=== PATIENT | female | born 1970 | race Caucasian/White ===

== ENCOUNTER 2017-10-24 17:13 | Inpatient (IN) | payer OTHER ==
--- NOTE | 2017-10-24 18:38 | C.PDOC ---
History Of Present Illness 47 yo female with history of hypertension, diabetes, presents to ED with complaints of 1 week of left sided chest pain, axillary pain, and left shoulder pain. Patient states the pain is intermittent and when present, lasts for an hour and occurs once per day. She reports noticing the symptoms particularluy when she is upset. She also reports associated left arm tingling and nausea. She also has SOB upon exertion (unrelated to current presentation). Patient denies any fever, chills, vomiting, visual changes or weakness. She reports she had similar symptoms 1 month ago and was seen by Dr. Jason and had an EKG done which was normal. Of note, patient reports a vague history of a clot in her left arm after her oopherectomy and hysterectomy, requiring her to be on Warfarin for 1 year; denies any recent use of Warfarin. Patient states she took Aspirin 325mg PO intermittently for her symptoms with minimal relief. She has no other medical complaints. Time Seen by Provider: 10/24/17 17:49 Chief Complaint (Nursing): Chest Pain History Per: Patient History/Exam Limitations: no limitations Onset/Duration Of Symptoms: Days, Intermittent Episodes Current Symptoms Are (Timing): Still Present Severity: Mild Additional History Per: Patient Past Medical History Reviewed: Historical Data, Nursing Documentation, Vital Signs Vital Signs: Last Vital Signs Temp 98.5 F 10/24/17 17:26 Pulse 80 10/24/17 17:26 Resp 18 10/24/17 17:26 BP 149/85 10/24/17 17:26 Pulse Ox 99 10/24/17 18:43 - Medical History PMH: Deep Vein Thrombosis, HTN Surgical History: No Surg Hx Family History: States: Stroke, CAD, Diabetes, Hypertension, Other Other Family History: breast cancer, AFib - Social History Hx Tobacco Use: No Hx Alcohol Use: No Hx Substance Use: No - Immunization History Hx Tetanus Toxoid Vaccination: No Hx Influenza Vaccination: No Hx Pneumococcal Vaccination: No Review Of Systems Constitutional: Negative for: Fever, Chills Cardiovascular: Positive for: Chest Pain. Negative for: Palpitations Respiratory: Negative for: Cough, Shortness of Breath Gastrointestinal: Negative for: Abdominal Pain Musculoskeletal: Positive for: Back Pain (left upper back), Other (left axilliary pain) Neurological: Positive for: Other (tingling left arm). Negative for: Weakness, Numbness Physical Exam - Physical Exam Appears: Well, Non-toxic, No Acute Distress Skin: Normal Color, Warm, Dry, Rash (eczema like rash noted to ventral aspect of right forearm) Head: Normacephalic Eye(s): bilateral: Normal Inspection Oral Mucosa: Moist Neck: Supple Chest: Symmetrical, Tenderness (tenderness to palpation of left chest wall) Cardiovascular: Rhythm Regular Respiratory: Normal Breath Sounds, No Rales, No Rhonchi, No Wheezing Gastrointestinal/Abdominal: Normal Exam, Bowel Sounds, Soft, No Tenderness Back: No Vertebral Tenderness, Muscle Spasm (left upper back tenderness) Extremity: Normal ROM, Tenderness (tenderness to left axilla, worse with ROM left arm), No Pedal Edema, No Calf Tenderness Neurological/Psych: Oriented x3 ED Course And Treatment ECG: Interpreted By Me, Viewed By Me ECG Interpretation: Abnormal Interpretation Of ECG: Normal sinus rhythm. Normal axis. Flattened T-waves in I, V6. T-wave inversion in AVL and V5. No ST/T wave changes O2 Sat by Pulse Oximetry: 99 (RA) Pulse Ox Interpretation: Normal Progress Note: Blood work, CXR, EKG ordered and reviewed. Disposition - Disposition Disposition Time: 19:00 Condition: STABLE Forms: [facility] (Cameroonian) - Clinical Impression Clinical Impression: Chest pain - Scribe Statement The provider has reviewed the documentation as recorded by the Scribe (Eliane Inman) Provider Attestation: All medical record entries made by the Scribe were at my direction and personally dictated by me. I have reviewed the chart and agree that the record accurately reflects my personal performance of the history, physical exam, medical decision making, and the department course for this patient. I have also personally directed, reviewed, and agree with the discharge instructions and disposition. Physician Patient Turnover Patient Signed Over To: Andre Wheeler Handoff Comments: pending labs, reassessment
[2017-10-24 19:06] LABS: HCG,QUALITATIVE URINE NEGATIVE (NEGATIVE)
[2017-10-24 19:08] LABS: BASO # 0.1 K/uL (0.0-0.2); BASO % 0.9 % (0.0-2.0); EOS # 0.3 K/uL (0.0-0.7); EOS % 2.4 % (0.0-4.0); HEMOGLOBIN 14.7 g/dL (11.0-16.0); LYMPH # 3.2 K/uL (1.0-4.3); LYMPH % 24.6 % (20.0-40.0); MEAN CELL VOLUME 87.4 fL (81.0-99.0); MEAN CORPUSCULAR HEMOGLOBIN 30.6 pg (27.0-31.0); MEAN PLATELET VOLUME 10.7 fL (7.2-11.7); MONO % 7.6 % (0.0-10.0); NEUT # 8.5 K/uL (1.8-7.0); NEUT % 64.5 % (50.0-75.0); NRBC % 0.1 % (0.0-2.0); RBC 4.8 Mil/uL (3.80-5.20); RED CELL DISTRIBUTION WIDTH 12.8 % (11.5-14.5); WHITE BLOOD COUNT 13.2 K/uL (4.8-10.8)
[2017-10-24 19:11] LABS: SQUAMOUS EPITHIAL 1 /hpf (0-5); URINE BACTERIA OCC (<OCC); URINE BILIRUBIN NEGATIVE (NEGATIVE); URINE BLOOD NEGATIVE (NEGATIVE); URINE CLARITY Clear (Clear); URINE COLOR Yellow (YELLOW); URINE GLUCOSE (UA) 3+ mg/dL (Normal); URINE LEUKOCYTE ESTERASE NEG Leu/uL (Negative); URINE PROTEIN NEGATIVE (NEGATIVE); URINE UROBILINOGEN NORMAL mg/dL (0.2-1.0)
[2017-10-24 19:35] LABS: INR 1.1; PROTHROMBIN TIME 12.2 SECONDS (9.7-12.2)
[2017-10-24 19:42] LABS: CALCIUM 9.6 mg/dl (8.6-10.4); GFR AFRICAN-AMERICAN > 60; GFR NON-AFRICAN AMERICAN > 60
[2017-10-24 19:44] LABS: ALBUMIN 3.8 g/dL (3.5-5.0); ALT/SGPT < 6 U/L (9-52); AST/SGOT 34 U/L (14-36); BLOOD UREA NITROGEN 17 mg/dL (7-17)
[2017-10-24] MEDS ORDERED: Iohexol 300 100 ML IJ ONE (20:25)
--- NOTE | 2017-10-24 21:47 | CT ---
EXAM: CT Angiography Chest With Intravenous Contrast CLINICAL HISTORY: 47 years old, female; Pain; Chest pain; Left-sided chest pain; Additional info: Chest pain/ elevated d-dimer TECHNIQUE: Axial computed tomographic angiography images of the chest with intravenous contrast using pulmonary embolism protocol. All CT scans at this facility use one or more dose reduction techniques, viz.: automated exposure control; ma/kV adjustment per patient size (including targeted exams where dose is matched to indication; i.e. head); or iterative reconstruction technique. MIP reconstructed images were created and reviewed. Coronal and sagittal reformatted images were created and reviewed. CONTRAST: 100 mL of visipaque 320 administered intravenously. COMPARISON: No relevant prior studies available. FINDINGS: Pulmonary arteries: No pulmonary embolism. Aorta: No aneurysm. No dissection. Lungs: Minimal atelectasis/scarring. No consolidation. Pleural space: No significant effusion. No pneumothorax. Heart: No cardiomegaly. No significant pericardial effusion. Bones/joints: No acute fracture. Soft tissues: 1.4 x 2.6 x 1.8 cm soft tissue lesion within left breast. Lymph nodes: No pathologically enlarged lymph nodes. IMPRESSION: 1. No CT evidence of pulmonary embolism. 2. Left breast lesion. Correlation with mammography is recommended. 3. Incidental/non-acute findings are described above.
--- NOTE | 2017-10-24 22:51 | CP.PCM.HP ---
Addendum entered and electronically signed by Hazel Omalley DO 10/25/17 03:20: HTN losartan 100 mg POQD HCTZ 12.5 mg POQD Original Note: <Hazel Omalley - Last Filed: 10/25/17 03:14> History of Present Illness - History of Present Illness History of Present Illness: CC: chest pain and left arm pain x 1 month HPI: Patient states she started to have chest pain for one month. Patient states she has numbness of tips of her fingers of left hand and pain along her left arm. Patient denies anything making it better or worse. She said she tried taking aspirin for the pain but it does not go away immediately. Pain lasts for 1 hour and does not go away. Patient had EKG done when the symptoms started at her PMD's office, but nothing came back positive. Patient has not seen a cyanide case hardener outpatient for a workup. Patient was diagnosed with depression 1 month ago due to depression screening at the Doctor's office and was given escitalopram which patient states she uses intermittently. Patient denies suicidal ideation, plans to harm self or others. Patient states she just feels overwhelmed, and feels a lot of pressure on herself to stay strong. Patient states she is worried that medications can cause side effects like the blood clot she got in her arm on a previous admission to [facility] for menorrhagia leading to hysterectomy about four years ago. Patient states she was found to have a blood clot of her left upper extremity and had to be readmitted for treatment. Patient says currently she feels like she has a knot in her left armpit and is worried because her sisters on mother's side had from breast cancer and she had a biopsy with mesh placement on left breast (which may explain CT chest finding of left breast lesion) PMH: DM, HTN, hx of dvt of left upper extremity (4 years ago), miscarriage, menorrhagia s/p hysterectomy Surgical history: hysterectomy family history: son has down syndrome, relatives have had "hole in the heart", parents have heart disease Medications: HCTZLosartan, escitalopram (intermittently), metformin (patient does not take due to diarrhea and abdominal pain) PMD Dr. Meng Present on Admission - Present on Admission Any Indicators Present on Admission: No History of DVT/PE: No History of Uncontrolled Diabetes: No Urinary Catheter: No Decubitus Ulcer Present: No Past Patient History - Past Medical History & Family History Past Medical History?: Yes - Past Social History Smoking Status: Never Smoked - CARDIAC Hx Hypertension: Yes - MUSCULOSKELETAL/RHEUMATOLOGICAL Hx Falls: No - GASTROINTESTINAL Hx Gastrointestinal Disorders: Yes Hx Nausea: Yes - PSYCHIATRIC Hx Substance Use: No - SURGICAL HISTORY Hx Surgeries: Yes Hx Section: Yes Hx Hysterectomy: Yes (2012) Other/Comment: fibroid surgery 02/2012, ANKLE SX, D&C - ANESTHESIA Hx Anesthesia: Yes Hx Anesthesia Reactions: No Hx Malignant Hyperthermia: No Meds Allergies/Adverse Reactions: Allergies Allergy/AdvReac Type Severity Reaction Status Date / Time No Known Allergies Allergy Verified 10/24/17 17:30 Physical Exam - Constitutional Appears: Non-toxic, No Acute Distress - Head Exam Head Exam: NORMAL INSPECTION, NORMOCEPHALIC - Eye Exam Eye Exam: EOMI, Normal appearance - ENT Exam ENT Exam: Mucous Membranes Moist, Normal Exam - Neck Exam Neck exam: Positive for: Full Rom, Normal Inspection. Negative for: Thyromegaly - Respiratory Exam Respiratory Exam: Clear to Auscultation Bilateral, NORMAL BREATHING PATTERN. absent: Accessory Muscle Use - Cardiovascular Exam Cardiovascular Exam: REGULAR RHYTHM, +S1, +S2 - GI/Abdominal Exam GI & Abdominal Exam: Normal Bowel Sounds, Soft. absent: Rebound, Rigid - Neurological Exam Neurological exam: Alert, CN II-XII Intact - Psychiatric Exam Psychiatric exam: Depressed, Flat Affect, Normal Mood Results - Vital Signs Recent Vital Signs: Last Vital Signs Temp 98.5 F 10/24/17 17:26 Pulse 75 10/24/17 20:24 Resp 18 10/24/17 20:24 BP 155/86 H 10/24/17 20:24 Pulse Ox 100 10/24/17 22:11 - Labs Result Diagrams: 10/24/17 18:56 10/24/17 19:18 Labs: Laboratory Results - last 24 hr 10/24/17 10/24/17 10/24/17 18:56 18:56 19:18 WBC 13.2 H RBC 4.80 Hgb 14.7 Hct 41.9 MCV 87.4 D MCH 30.6 MCHC 35.0 RDW 12.8 Plt Count 272 MPV 10.7 Neut % (Auto) 64.5 Lymph % (Auto) 24.6 [place] % (Auto) 7.6 Eos % (Auto) 2.4 Baso % (Auto) 0.9 Neut # (Auto) 8.5 H Lymph # (Auto) 3.2 [place] # (Auto) 1.0 H Eos # (Auto) 0.3 Baso # (Auto) 0.1 PT 12.2 INR 1.1 APTT 28 D-Dimer, Quantitative 356 H Sodium Potassium Chloride Carbon Dioxide Anion Gap BUN Creatinine Est GFR ( Amer) Est GFR (Non-Af Amer) Random Glucose Calcium Total Bilirubin AST ALT Alkaline Phosphatase Total Creatine Kinase Troponin I Total Protein Albumin Globulin Albumin/Globulin Ratio Urine Color Yellow Urine Clarity Clear Urine pH 5.0 Ur Specific [place] 1.031 H Urine Protein Negative Urine Glucose (UA) 3+ H Urine Ketones Negative Urine Blood Negative Urine Nitrate Negative Urine Bilirubin Negative Urine Urobilinogen Normal Ur Leukocyte Esterase Neg Urine WBC (Auto) 1 Urine RBC (Auto) 3 Ur Squamous Epith Cells 1 Urine Bacteria Occ H Urine HCG, Qual Negative 10/24/17 19:18 WBC RBC Hgb Hct MCV MCH MCHC RDW Plt Count MPV Neut % (Auto) Lymph % (Auto) [place] % (Auto) Eos % (Auto) Baso % (Auto) Neut # (Auto) Lymph # (Auto) [place] # (Auto) Eos # (Auto) Baso # (Auto) PT INR APTT D-Dimer, Quantitative Sodium 137 Potassium 4.7 Chloride 101 Carbon Dioxide 27 Anion Gap 14 BUN 17 Creatinine 0.6 L Est GFR ( Amer) > 60 Est GFR (Non-Af Amer) > 60 Random Glucose 266 H Calcium 9.6 Total Bilirubin 0.4 AST 34 ALT < 6 L D Alkaline Phosphatase 87 Total Creatine Kinase 35 Troponin I < 0.0120 Total Protein 7.7 Albumin 3.8 Globulin 3.9 Albumin/Globulin Ratio 1.0 Urine Color Urine Clarity Urine pH Ur Specific [place] Urine Protein Urine Glucose (UA) Urine Ketones Urine Blood Urine Nitrate Urine Bilirubin Urine Urobilinogen Ur Leukocyte Esterase Urine WBC (Auto) Urine RBC (Auto) Ur Squamous Epith Cells Urine Bacteria Urine HCG, Qual Assessment & Plan - Assessment and Plan (Free Text) Assessment: ACS r/o f/u ROMIs ROMIs negative x 1 ddimer elevated CTA negative for PE, incidental left breast lesion noted Patient states she had biopsy in the past for it. f/u blood culture f/u tsh, t4 Cardiology consult: Dr. Macias DM hypoglycemic protocol f/u A1c insulin sc ACHS accucheck achs Depression monitor Prophylaxis SCD Heparin 5000 sc q8h Pepcid [address] Meng discussed with Dr. Britany Omalley DO PGY1 - Date & Time Date: 10/24/17 Time: 22:51 <Yves Garg - Last Filed: 10/25/17 06:34> Results - Vital Signs Recent Vital Signs: Last Vital Signs Temp 98.4 F 10/25/17 02:54 Pulse 72 10/25/17 04:00 Resp 18 10/25/17 02:54 BP 136/80 10/25/17 02:54 Pulse Ox 96 10/25/17 02:54 - Labs Result Diagrams: 10/24/17 18:56 10/24/17 19:18 Labs: Laboratory Results - last 24 hr 10/24/17 10/24/17 10/24/17 18:56 18:56 19:18 WBC 13.2 H RBC 4.80 Hgb 14.7 Hct 41.9 MCV 87.4 D MCH 30.6 MCHC 35.0 RDW 12.8 Plt Count 272 MPV 10.7 Neut % (Auto) 64.5 Lymph % (Auto) 24.6 [place] % (Auto) 7.6 Eos % (Auto) 2.4 Baso % (Auto) 0.9 Neut # (Auto) 8.5 H Lymph # (Auto) 3.2 [place] # (Auto) 1.0 H Eos # (Auto) 0.3 Baso # (Auto) 0.1 PT 12.2 INR 1.1 APTT 28 D-Dimer, Quantitative 356 H Sodium Potassium Chloride Carbon Dioxide Anion Gap BUN Creatinine Est GFR ( Amer) Est GFR (Non-Af Amer) Random Glucose Calcium Total Bilirubin AST ALT Alkaline Phosphatase Total Creatine Kinase CK-MB (Mass) Troponin I Total Protein Albumin Globulin Albumin/Globulin Ratio Urine Color Yellow Urine Clarity Clear Urine pH 5.0 Ur Specific [place] 1.031 H Urine Protein Negative Urine Glucose (UA) 3+ H Urine Ketones Negative Urine Blood Negative Urine Nitrate Negative Urine Bilirubin Negative Urine Urobilinogen Normal Ur Leukocyte Esterase Neg Urine WBC (Auto) 1 Urine RBC (Auto) 3 Ur Squamous Epith Cells 1 Urine Bacteria Occ H Urine HCG, Qual Negative 10/24/17 10/25/17 19:18 01:01 WBC RBC Hgb Hct MCV MCH MCHC RDW Plt Count MPV Neut % (Auto) Lymph % (Auto) [place] % (Auto) Eos % (Auto) Baso % (Auto) Neut # (Auto) Lymph # (Auto) [place] # (Auto) Eos # (Auto) Baso # (Auto) PT INR APTT D-Dimer, Quantitative Sodium 137 Potassium 4.7 Chloride 101 Carbon Dioxide 27 Anion Gap 14 BUN 17 Creatinine 0.6 L Est GFR ( Amer) > 60 Est GFR (Non-Af Amer) > 60 Random Glucose 266 H Calcium 9.6 Total Bilirubin 0.4 AST 34 ALT < 6 L D Alkaline Phosphatase 87 Total Creatine Kinase 35 < 20 L CK-MB (Mass) < 0.22 Troponin I < 0.0120 < 0.0120 Total Protein 7.7 Albumin 3.8 Globulin 3.9 Albumin/Globulin Ratio 1.0 Urine Color Urine Clarity Urine pH Ur Specific [place] Urine Protein Urine Glucose (UA) Urine Ketones Urine Blood Urine Nitrate Urine Bilirubin Urine Urobilinogen Ur Leukocyte Esterase Urine WBC (Auto) Urine RBC (Auto) Ur Squamous Epith Cells Urine Bacteria Urine HCG, Qual Assessment & Plan - Date & Time Date: 10/25/17 (I have seen and examined the patient. I agree with the findings and plan of care as documented by Dr. Omalley. Patient with chest pain. History of hypertension and diabetes. ROMIx3 with EKG. Aspirin and Statin. Consult to Cardio. Continue home meds. Accuchecks and NISS. Monitor for acute changes.) Time: 06:33 Attending/Attestation - Attestation I have personally seen and examined this patient.: Yes I have fully participated in the care of the patient.: Yes I have reviewed all pertinent clinical information: Yes
[2017-10-24] MEDS ORDERED: Dextrose 50% SYRINGE Inj (50 ml) IVP PRN (23:14)
[2017-10-24] MEDS ORDERED: Glucagon Recombinant 1 mg Inj IM PRN (23:14)
[2017-10-25 02:14] LABS: CK-MB < 0.22 ng/mL (0.0-3.38)
[2017-10-25 07:25] LABS: BASO # 0.1 K/uL (0.0-0.2); BASO % 0.8 % (0.0-2.0); EOS # 0.4 K/uL (0.0-0.7); EOS % 3.6 % (0.0-4.0); HEMOGLOBIN 12.9 g/dL (11.0-16.0); LYMPH # 3.6 K/uL (1.0-4.3); LYMPH % 33.8 % (20.0-40.0); MEAN CELL VOLUME 87.7 fL (81.0-99.0); MEAN CORPUSCULAR HEMOGLOBIN 30.7 pg (27.0-31.0); MEAN PLATELET VOLUME 10.6 fL (7.2-11.7); NEUT # 5.6 K/uL (1.8-7.0); NEUT % 52.8 % (50.0-75.0); RBC 4.19 Mil/uL (3.80-5.20); RED CELL DISTRIBUTION WIDTH 12.9 % (11.5-14.5); WHITE BLOOD COUNT 10.6 K/uL (4.8-10.8)
[2017-10-25] MEDS ORDERED: (Novolin R) Insulin Human Regular 100 units/ml vial SC SCH ×2 (07:30→09:54)
[2017-10-25 07:40] LABS: ALBUMIN 3.4 g/dL (3.5-5.0); ALT/SGPT 7 U/L (9-52); AST/SGOT 18 U/L (14-36); BLOOD UREA NITROGEN 21 mg/dL (7-17); CALCIUM 9.2 mg/dl (8.6-10.4); GFR AFRICAN-AMERICAN > 60; GFR NON-AFRICAN AMERICAN > 60; HDL CHOLESTEROL 31 mg/dL (30-70)
[2017-10-25 07:49] LABS: LDL CHOLESTEROL 142 mg/dL (0-129)
--- NOTE | 2017-10-25 08:26 | RAD ---
Chest x-ray single frontal view History: Chest pain. Comparison: None available. Findings: No focal infiltrate or effusion. Heart size within normal limits. Small nodular density at the left lung base likely represents confluence of shadows with ribs and vessels. Impression: No focal infiltrate or effusion.
[2017-10-25 10:30] LABS: CK-MB < 0.22 ng/mL (0.0-3.38)
--- NOTE | 2017-10-25 11:22 | CP.PCM.PN ---
<Memo Reynoso - Last Filed: 10/25/17 11:19> Subjective - Date & Time of Evaluation Date of Evaluation: 10/25/17 Time of Evaluation: 11:19 - Subjective Subjective: Patient seen and examined at bedside. No chest pain or SOB today. Complains of pain in the feet overnight. Not new. She attributes this to her DM. States has not had mammogram in 6 years, states she has been to busy. Has tried to control her DM with diet but is open to option of taking insulin as sugar is uncontrolled. Objective - Vital Signs/Intake and Output Vital Signs (last 24 hours): Temp Pulse Resp BP Pulse Ox 97.8 F 71 18 163/100 H 98 10/25/17 07:30 10/25/17 07:30 10/25/17 07:30 10/25/17 07:30 10/25/17 07:30 - Medications Medications: Current Medications Aspirin (Aspirin Chewable) 81 mg PO DAILY [facility] Hydrochlorothiazide (Microzide) 12.5 mg PO DAILY [facility] Last Admin: 10/25/17 09:55 Dose: 12.5 mg Insulin Human Regular (Novolin R) 0 unit SC ACHS [facility] PRN Reason: Protocol Losartan Potassium (Cozaar) 100 mg PO DAILY [facility] Last Admin: 10/25/17 09:55 Dose: 100 mg - Labs Labs: 10/25/17 07:16 10/25/17 07:16 PT 12.2 SECONDS (9.7-12.2) 10/24/17 19:18 INR 1.1 10/24/17 19:18 APTT 28 SECONDS (21-34) 10/24/17 19:18 - Constitutional Appears: Well - Head Exam Head Exam: ATRAUMATIC, NORMAL INSPECTION, NORMOCEPHALIC - Eye Exam Eye Exam: EOMI, Normal appearance, PERRL Pupil Exam: NORMAL ACCOMODATION, PERRL - ENT Exam ENT Exam: Mucous Membranes Moist, Normal Exam - Neck Exam Neck Exam: Full ROM, Normal Inspection. absent: Lymphadenopathy - Respiratory Exam Respiratory Exam: Clear to Ausculation Bilateral, NORMAL BREATHING PATTERN - Cardiovascular Exam Cardiovascular Exam: REGULAR RHYTHM, +S1, +S2. absent: Murmur Additional comments: breast exam no masses. No skin changes. Previous surgical clip able to be palpated on LUQ - GI/Abdominal Exam GI & Abdominal Exam: Soft, Normal Bowel Sounds. absent: Tenderness - Extremities Exam Extremities Exam: Full ROM, Normal Capillary Refill, Normal Inspection. absent : Joint Swelling, Pedal Edema - Back Exam Back Exam: NORMAL INSPECTION - Neurological Exam Neurological Exam: Alert, Awake, CN II-XII Intact, Normal Gait, Oriented x3 - Psychiatric Exam Psychiatric exam: Normal Affect, Normal Mood - Skin Skin Exam: Dry, Intact, Normal Color, Warm Assessment and Plan (1) Chest pain Assessment & Plan: patient has DM and atypical chest pain with YOEL of 3. Will need echo and stress test tomorrow. Cream Separator Operator is Dr. Macias Start ASA and Statin, patient is already on ARB LDL is 142 7.4% 10 year risk of Cardiovascular event. 1 ekg did show T wave inversions in anterior leads but this was transient. All trops are negative x3 Status: Acute (2) Diabetes mellitus Assessment & Plan: A1C 11.1 despite lifestyle modifications Will start patient on ISS. Will need to be on insulin regimen as outpatient. Will consult Endo Dr. Reyna for her opinion and follow up. Patient is complaining of bilateral tingling in the feet so will start gabapentin 300 BID. Will have actuarial consultant talk to the patient. Has previously had trial of metformin but has diarrhea and was unable to tolerate. Status: Acute (3) History of abnormal mammogram Assessment & Plan: breast exam was unremarkable. Given patients history will need outpatient mammogram. Status: Acute (4) HTN (hypertension) Assessment & Plan: continue losartan and HCTZ Status: Acute (5) Prophylactic measure Assessment & Plan: heparin SC q8 No GI ppx indicated at this time. scd Status: Acute <Arcelia Moctezuma V - Last Filed: 10/25/17 19:27> Objective - Vital Signs/Intake and Output Vital Signs (last 24 hours): Temp Pulse Resp BP Pulse Ox 98.2 F 66 20 130/84 98 10/25/17 15:00 10/25/17 16:13 10/25/17 15:00 10/25/17 15:00 10/25/17 16:00 - Medications Medications: Current Medications Aspirin (Aspirin Chewable) 81 mg PO DAILY [facility] Last Admin: 10/25/17 12:40 Dose: 81 mg Gabapentin (Neurontin) 300 mg PO BID [facility] Last Admin: 10/25/17 17:48 Dose: 300 mg Hydrochlorothiazide (Microzide) 12.5 mg PO DAILY [facility] Last Admin: 10/25/17 09:55 Dose: 12.5 mg Insulin Aspart (Novolog) 10 unit SC AC [facility] Last Admin: 10/25/17 17:48 Dose: 10 units Insulin Aspart (Novolog) 0 unit SC ACHS [facility] Last Admin: 10/25/17 17:10 Dose: Not Given Insulin Glargine (Lantus) 24 unit SC HS [facility] Losartan Potassium (Cozaar) 100 mg PO DAILY [facility] Last Admin: 10/25/17 09:55 Dose: 100 mg Rosuvastatin Calcium (Crestor) 10 mg PO HS [facility] - Labs Labs: 10/25/17 07:16 10/25/17 07:16 PT 12.2 SECONDS (9.7-12.2) 10/24/17 19:18 INR 1.1 10/24/17 19:18 APTT 28 SECONDS (21-34) 10/24/17 19:18 Attending/Attestation - Attestation I have personally seen and examined this patient.: Yes I have fully participated in the care of the patient.: Yes I have reviewed all pertinent clinical information, including history, physical exam and plan: Yes Notes (Text): Patient seen, examined and case discussed with day-time resident. Patient reports she was diagnosed in the office of Dr. Jason for diabetes couple of months ago. She did not want to start medications; planned to dietary and lifestyle modifications. I have explained to her that her a1c: 11 and will likely need insulin. I have also explained to her given her cardiac risk factors of diabetes, hypertension, family hx of stroke we carry a high suspicion for heart disease given her complaints of chest pain. Patient's 1st EKG is abnormal. Cardiology recommending for echocardiogram and stress test. Patient also reports there is significant family hx for breast cancer, her maternal aunts two have breast cancer. She reports she had a mammography completed 5 years ago but has not had her yearly mammogram because of life stressors including the care of her 26 year old son who has Down syndrome. Patient reports she had mammogram about 5 years and had left marker from breast. Assessment/Plan (1) Chest pain Assessment & Plan: * Cream Separator Operator is Dr. Macias on board-->help appreciated * patient has DM and atypical chest pain with YOEL of 3. * Will need echo and stress test tomorrow * Aspirin 81mg PO daily * LDL: 142, HDL 31, Cholestrol: 177, T * BINTA X3: negative * Hgba1c:11.1 * Chest xray (10/24/17): no infiltrate or effusion * CT Chest (10/24/17): No CT evidence of pulmonary embolism, left breast lesion. Status: Acute (2) Diabetes mellitus Assessment & Plan: * Endocrinology (Dr. Reyna) on board-->help appreciated * A1C 11.1 despite lifestyle modifications * regular insulin slide subq * Start gabapentin 300 BID * Lantus 24units subHS * Novolog 10 subq AC * Cozaar 100mg POdaily * Crestor 10mg PO qHS Status: Acute (3) History of abnormal mammogram Assessment & Plan: * breast exam was unremarkable. Given patients history will need outpatient mammogram. Status: Acute (4) HTN (hypertension) Assessment & Plan: * HCTZ 12.5mg PO daily * Cozaar 100mg PO daily Status: Acute (5) Prophylactic measure Assessment & Plan: * heparin SC q8 * No GI ppx indicated at this time. * scd Status: Acute
[2017-10-25] MEDS ORDERED: (Novolog) Insulin Aspart, Recombinant 100 u/ml 10 ml vial SC SCH (16:30)
[2017-10-25] MEDS: (Novolog) Insulin Aspart, Recombinant 100 u/ml 10 ml vial SC SCH ×2 (17:10→21:54)
[2017-10-25] MEDS ORDERED: (Lantus) Insulin Glargine, Recombinant SC SCH (22:00)
--- NOTE | 2017-10-26 02:57 | CON ---
DATE: 10/25/2017 ENDOCRINOLOGY CONSULT LOCATION: Room 650, 6th tower. HISTORY OF PRESENT ILLNESS: This is a 47-year-old female with known history of type 2 diabetes and hypertension, presenting here with sudden onset of precordial chest pain and supervening left arm painful paresthesias and is now being referred for diabetic evaluation because of persistent hyperglycemic accelerations as noted there. PAST MEDICAL HISTORY: As mentioned above, history of type 2 diabetes, previously on metformin therapy as noted, history of hypertension and dyslipidemia, history of generalized anxiety and depression, currently taking psychotropic medications, history of fibroid tumors and menorrhagia, and underwent subsequent hysterectomy some years ago as noted. She also had significant history of deep vein thrombosis in the left upper extremity. FAMILY HISTORY: Positive for hypertension and diabetes. SOCIAL HISTORY: The patient has supportive family. No known substance use. REVIEW OF SYSTEMS: As mentioned above. Admits to generalized body weakness with easy fatigability and tiredness and suboptimal energy level, also had mixed episodic bouts of dizziness and lightheadedness, worse on the day of admission. No chest pains or palpitations or PNDs. Her oral intake, however, has been variable with nausea and dyspepsia and vague upper abdominal pain. PHYSICAL EXAMINATION: GENERAL: Overweight female, in no apparent distress. VITAL SIGNS: Blood pressure 144/80, pulse of 70 beats per minute and regular, temperature 98, respirations 20, height is 5 feet 1 inches, weight is 185 pounds. HEENT: Head is normocephalic. Eyes anicteric with pink conjunctivae. Funduscopy not possible at this time. Ears, nose, and throat, otherwise, normal. NECK: Supple. Thyroid gland is normal size. No carotid bruits or cervical adenopathy. CARDIOPULMONARY: Some adynamic precordium. S1, S2, rapid and regular. LUNGS: Clear to auscultation. ABDOMEN: Flat and soft with positive bowel sounds. EXTREMITIES: No peripheral edema. Pulses are +2 bilaterally. LABORATORY DATA: Her chemistry showed a hemoglobin A1c of 11.1%, which is quite elevated and indicative of suboptimal metabolic control of her diabetic condition even prior to this admission. Her latest chemistry showed a BUN of 21, sodium 140, potassium 3.9, chloride 102, CO2 of 27, glucose 246 with creatinine of 0.7. Her glucose values have ranged from 247 to 311 mg/dL. ASSESSMENT: This is a 47-year-old female with uncontrolled and decompensated type 2 insulin requiring diabetes presenting here with marked hyperglycemic accelerations and hyperosmolar hyperglycemic state as noted. She also has microvascular complications of retinopathy and polyneuropathy with diabetic macrovascular complications with coronary artery disease and peripheral arterial disease and vasculopathies. PLAN OF MANAGEMENT: I have discussed with the patient and the staff. We will switch the patient over to a more physiologic basal and bolus insulin drug combination as noted. We will start her with NovoLog given as 10 units subcu t.i.d. before meals to start today. We will also add basal insulin with Lantus to be given as 24 units subcu at bedtime daily to start tonight. We will modify the coverage scale to await hypoglycemia with NovoLog coverage as given and detailed orders have been given in the computer. We will obtain serial chemistries and supplement accordingly as needed. We will follow and advise accordingly. Any Reyna MD
[2017-10-26] MEDS: (Novolog) Insulin Aspart, Recombinant 100 u/ml 10 ml vial SC SCH ×7 (07:52→21:15)
[2017-10-26 08:05] LABS: BASO # 0.1 K/uL (0.0-0.2); BASO % 0.9 % (0.0-2.0); EOS # 0.4 K/uL (0.0-0.7); HEMOGLOBIN 13.6 g/dL (11.0-16.0); LYMPH # 3.3 K/uL (1.0-4.3); LYMPH % 30.9 % (20.0-40.0); MEAN CORPUSCULAR HEMOGLOBIN 30.3 pg (27.0-31.0); MEAN CORPUSCULAR HGB CONC 34.5 g/dL (33.0-37.0); MEAN PLATELET VOLUME 10.5 fL (7.2-11.7); MONO # 0.8 K/uL (0.0-0.8); MONO % 7.8 % (0.0-10.0); NEUT # 6.1 K/uL (1.8-7.0); NEUT % 56.4 % (50.0-75.0); RBC 4.48 Mil/uL (3.80-5.20); RED CELL DISTRIBUTION WIDTH 12.9 % (11.5-14.5); WHITE BLOOD COUNT 10.7 K/uL (4.8-10.8)
[2017-10-26 08:11] LABS: ALBUMIN 3.6 g/dL (3.5-5.0); ALT/SGPT 9 U/L (9-52); AST/SGOT 18 U/L (14-36); BLOOD UREA NITROGEN 16 mg/dL (7-17); CALCIUM 9.3 mg/dl (8.6-10.4); GFR AFRICAN-AMERICAN > 60; GFR NON-AFRICAN AMERICAN > 60
--- NOTE | 2017-10-26 14:54 | CP.PCM.PN ---
Subjective - Date & Time of Evaluation Date of Evaluation: 10/26/17 Time of Evaluation: 14:20 - Subjective Subjective: Medical Attending Note: patient seen and examined. patient's and son present. Patient reports mild headache and reports she feels anxious awaiting results from echo and stress test completed this morning. Patient denies chest pain, denies cough, denies palpitations, denies abdominal pain, denies vomitting, denies nausea, reports having bowel movement. I had an extensive conversation regarding lifestyle and exercise modifications to controlling her diabetes and hypertension. Patient is aware she must and is commited to doing so. I have suggested her to use the [place] [employer] to for suggestive meal plans. Patient is aware she needs insulin to limit the effects of diabetes on the body. Objective - Vital Signs/Intake and Output Vital Signs (last 24 hours): Temp Pulse Resp BP Pulse Ox 97.9 F 84 20 140/85 98 10/26/17 07:00 10/26/17 11:44 10/26/17 07:00 10/26/17 07:00 10/26/17 07:00 - Medications Medications: Current Medications Aspirin (Aspirin Chewable) 81 mg PO DAILY [facility] Last Admin: 10/26/17 11:32 Dose: 81 mg Gabapentin (Neurontin) 300 mg PO BID [facility] Last Admin: 10/26/17 11:32 Dose: Not Given Heparin Sodium (Porcine) (Heparin) 5,000 units SC Q8 [facility] Last Admin: 10/26/17 14:01 Dose: Not Given Hydrochlorothiazide (Microzide) 12.5 mg PO DAILY [facility] Last Admin: 10/26/17 11:31 Dose: 12.5 mg Insulin Aspart (Novolog) 0 unit SC ACHS [facility] Last Admin: 10/26/17 12:00 Dose: Not Given Insulin Aspart (Novolog) 14 unit SC AC [facility] Insulin Glargine (Lantus) 28 unit SC HS [facility] Losartan Potassium (Cozaar) 100 mg PO DAILY [facility] Last Admin: 10/26/17 11:32 Dose: 100 mg Rosuvastatin Calcium (Crestor) 10 mg PO HS [facility] Last Admin: 10/25/17 21:54 Dose: 10 mg - Labs Labs: 10/26/17 07:47 10/26/17 07:47 PT 12.2 SECONDS (9.7-12.2) 10/24/17 19:18 INR 1.1 10/24/17 19:18 APTT 28 SECONDS (21-34) 10/24/17 19:18 - Constitutional Appears: Non-toxic, No Acute Distress - Head Exam Head Exam: NORMAL INSPECTION - Eye Exam Eye Exam: EOMI - ENT Exam ENT Exam: Mucous Membranes Moist - Respiratory Exam Respiratory Exam: Clear to Ausculation Bilateral, NORMAL BREATHING PATTERN. absent: Rales, Rhonchi, Wheezes - Cardiovascular Exam Cardiovascular Exam: RRR, +S1, +S2 - GI/Abdominal Exam GI & Abdominal Exam: Soft, Normal Bowel Sounds. absent: Distended, Firm, Guarding, Rigid, Tenderness, Rebound - Extremities Exam Extremities Exam: absent: Pedal Edema, Tenderness - Neurological Exam Neurological Exam: Alert, Awake, Oriented x3 Neuro motor strength exam: Left Upper Extremity: 5, Right Upper Extremity: 5, Left Lower Extremity: 5, Right Lower Extremity: 5 - Psychiatric Exam Psychiatric exam: Normal Affect, Normal Mood - Skin Skin Exam: Dry, Intact, Normal Color, Warm Assessment and Plan (1) Chest pain Status: Acute (2) Diabetes mellitus Status: Chronic (3) HTN (hypertension) Status: Chronic (4) History of abnormal mammogram Status: Chronic (5) Prophylactic measure Status: Acute Attending/Attestation - Attestation I have personally seen and examined this patient.: Yes I have fully participated in the care of the patient.: Yes I have reviewed all pertinent clinical information, including history, physical exam and plan: Yes Notes (Text): Patient seen, examined and case discussed with medical intern. We are awaiting results of echocardiogram and stress test; to be available by 3: 30Pm for discharge planning purposes Assessment/Plan (1) Chest pain Assessment & Plan: * Proj Mgr is Dr. Macias on board-->help appreciated * patient has DM and atypical chest pain with YOEL of 3. * Awaiting results of echocardiogram and stress test * Aspirin 81mg PO daily * LDL: 142, HDL 31, Cholestrol: 177, T * BINTA X3: negative * Hgba1c:11.1 * Chest xray (10/24/17): no infiltrate or effusion * CT Chest (10/24/17): No CT evidence of pulmonary embolism, left breast lesion. Status: Acute (2) Diabetes mellitus--Uncontrolled Assessment & Plan: * Endocrinology (Dr. Reyna) on board-->help appreciated * A1C 11.1 despite lifestyle modifications * Hypoglycemic protocol * staff educator referral * Greens Picker referral * regular insulin slide subq * Start gabapentin 300 BID * Lantus 24units subHS * Novolog 10 subq AC * Cozaar 100mg POdaily * Crestor 10mg PO qHS * patient is aware of screening exams for both opthalamology and podiatry in regards to diabetes management Status: Acute (3) History of abnormal mammogram Assessment & Plan: * breast exam was unremarkable. Given patients history, will need outpatient mammogram. * patient affirms she will f/u outpatient in regards to mammogram in light of maternal family hx of breast cancer and hx of abnormal breast exam (left breast) Status: Acute (4) HTN (hypertension) Assessment & Plan: * HCTZ 12.5mg PO daily * Cozaar 100mg PO daily Status: Chronic (5) Prophylactic measure Assessment & Plan: * heparin SC q8 * No GI ppx indicated at this time. * scds Status: Acute
[2017-10-26] MEDS ORDERED: Dextrose 50% SYRINGE Inj (50 ml) IV PRN (14:58)
[2017-10-26] MEDS ORDERED: Glucagon Recombinant 1 mg Inj IM PRN (14:58)
--- NOTE | 2017-10-26 17:36 | PN ---
DATE: 10/26/2017 ENDO FOLLOWUP NOTE LOCATION: Room 650. SUBJECTIVE: This is a 47-year-old female with recent uncontrolled type 2 insulin-requiring diabetes, now being followed closely for metabolic management. She is undergoing cardiac workup for recent onset of precordial chest pain and progressive shortness of breath, and was admitted thereof for the aforementioned. Her glycemic levels are fluctuating, but improved and the glucose values have ranged from 200 to 219 and 295 mg/dL. Her latest chemistry showed a BUN of 16, sodium 140, potassium 4.1, chloride 101, CO2 of 29, glucose 195, and creatinine 0.7. ASSESSMENT: This is a 47-year-old female with uncontrolled and decompensated type 2 insulin-requiring diabetes with marked hyperglycemic acceleration related to a subtherapeutic insulin regimen as given. PLAN: Plan of management as discussed with the patient and the staff. We will continue, but modify her basal and bolus insulin regimen, which is clearly a better therapeutic choice for optimizing metabolic control thereof. We will increase her NovoLog to 14 units subcu t.i.d. before meals as ordered. We will increase her Lantus to 28 units subcu at bedtime daily to start tonight as given. We will titrate incrementally as indicated to optimize metabolic control. We will continue the low dose correction scale using NovoLog insulin as given. We will obtain serial chemistries and supplement accordingly as needed. We will also initiate diabetic education to include insulin self-administration and also dietary evaluation to continue healthier food choices thereof. We will follow with you. Any Reyna MD
[2017-10-26] MEDS ORDERED: (Lantus) Insulin Glargine, Recombinant SC SCH (22:00)
--- NOTE | 2017-10-27 01:19 | CP.PCM.PN ---
<Malissa Adams - Last Filed: 10/27/17 06:08> Subjective - Date & Time of Evaluation Date of Evaluation: 10/27/17 Time of Evaluation: 01:19 - Subjective Subjective: Medicine progress note for Dr. Moctezuma Patient was seen and examined at bedside in no acute distress. Patient reports feeling anxious about Sunday's cardiac cath. She states she get chest pain when she moves or changes position. Patient denies dyspnea, abdominal pain, nausea, vomiting, fevers, headaches, dysuria, diarrhea. No acute events overnight. Objective - Vital Signs/Intake and Output Vital Signs (last 24 hours): Temp Pulse Resp BP Pulse Ox 98.6 F 65 20 117/80 96 10/26/17 23:05 10/26/17 23:05 10/26/17 23:05 10/26/17 23:05 10/26/17 23:05 - Medications Medications: Current Medications Aspirin (Aspirin Chewable) 81 mg PO DAILY [facility] Last Admin: 10/26/17 11:32 Dose: 81 mg Dextrose (Dextrose 50% Inj) 0 ml IV STAT PRN; Protocol PRN Reason: Hypoglycemia Protocol Dextrose (Glutose 15) 0 gm PO ONCE PRN; Protocol PRN Reason: Hypoglycemia Protocol Gabapentin (Neurontin) 300 mg PO BID [facility] Last Admin: 10/26/17 17:23 Dose: 300 mg Glucagon (Glucagen Diagnostic Kit) 0 mg IM STAT PRN; Protocol PRN Reason: Hypoglycemia Protocol Heparin Sodium (Porcine) (Heparin) 5,000 units SC Q8 [facility] Last Admin: 10/26/17 21:18 Dose: 5,000 units Hydrochlorothiazide (Microzide) 12.5 mg PO DAILY [facility] Last Admin: 10/26/17 11:31 Dose: 12.5 mg Dextrose (Dextrose 5% In Water 1000 Ml) 1,000 mls @ 0 mls/hr IV .Q0M PRN; Protocol; Per Protocol PRN Reason: Hypoglycemia Protocol Insulin Aspart (Novolog) 0 unit SC ACHS [facility] Last Admin: 10/26/17 21:15 Dose: Not Given Insulin Aspart (Novolog) 14 unit SC AC [facility] Last Admin: 10/26/17 17:46 Dose: 14 unit Insulin Glargine (Lantus) 28 unit SC HS [facility] Last Admin: 10/26/17 21:17 Dose: 28 unit Losartan Potassium (Cozaar) 100 mg PO DAILY [facility] Last Admin: 10/26/17 11:32 Dose: 100 mg Rosuvastatin Calcium (Crestor) 10 mg PO HS [facility] Last Admin: 10/26/17 21:16 Dose: 10 mg - Labs Labs: 10/26/17 07:47 10/26/17 07:47 PT 12.2 SECONDS (9.7-12.2) 10/24/17 19:18 INR 1.1 10/24/17 19:18 APTT 28 SECONDS (21-34) 10/24/17 19:18 - Constitutional Appears: No Acute Distress - Head Exam Head Exam: ATRAUMATIC, NORMAL INSPECTION - Eye Exam Eye Exam: EOMI, Normal appearance - ENT Exam ENT Exam: Mucous Membranes Moist - Respiratory Exam Respiratory Exam: Clear to Ausculation Bilateral, NORMAL BREATHING PATTERN. absent: Prolonged Expiratory Phase, Rales, Rhonchi, Wheezes - Cardiovascular Exam Cardiovascular Exam: REGULAR RHYTHM, +S1, +S2 - GI/Abdominal Exam GI & Abdominal Exam: Soft, Normal Bowel Sounds. absent: Distended, Tenderness - Extremities Exam Extremities Exam: Normal Inspection. absent: Pedal Edema, Tenderness Additional comments: well healed scar on right ankle - Neurological Exam Neurological Exam: Alert, Awake, Oriented x3 - Psychiatric Exam Psychiatric exam: Anxious - Skin Skin Exam: Dry, Intact, Normal Color, Warm Assessment and Plan - Assessment and Plan (Free Text) Plan: (1) Chest pain Assessment & Plan: * Instructional Design Technologist is Dr. Macias on board-->help appreciated * Patient has DM and atypical chest pain with YOEL of 3. * Echo: f/u results * Stress test: f/u results * Aspirin 81mg PO daily * LDL: 142, HDL 31, Cholestrol: 177, T * BINTA X3: negative * Hgba1c:11.1 * Chest xray (10/24/17): no infiltrate or effusion * CT Chest (10/24/17): No CT evidence of pulmonary embolism, left breast lesion. *Per cardiology, recommended for cardiac cath on 10/29/17. (2) Diabetes mellitus--Uncontrolled Assessment & Plan: * Endocrinology (Dr. Reyna) on board-->help appreciated * A1C 11.1 despite lifestyle modifications * Hypoglycemic protocol * life educator referral * Occupational Therapy Technician referral * ISS * Gabapentin 300 BID * Lantus 24units subHS * Novolog 10 subq AC * Cozaar 100mg POdaily * Crestor 10mg PO qHS (3) History of abnormal mammogram Assessment & Plan: * Breast exam was unremarkable. Given patients history, will need outpatient mammogram. * Patient affirms she will f/u outpatient in regards to mammogram in light of maternal family hx of breast cancer and hx of abnormal breast exam (left breast) (4) HTN (hypertension) Assessment & Plan: * HCTZ 12.5mg PO daily * Cozaar 100mg PO daily * Continue to monitor (5) Prophylactic measure Assessment & Plan: * DVT: SCDs, heparin SC q8 * No GI ppx indicated at this time. <Arcelia Moctezuma V - Last Filed: 10/27/17 10:11> Objective - Vital Signs/Intake and Output Vital Signs (last 24 hours): Temp Pulse Resp BP Pulse Ox 98.3 F 66 18 122/82 97 10/27/17 07:05 10/27/17 07:05 10/27/17 07:05 10/27/17 07:05 10/27/17 07:05 Intake and Output: 10/27/17 10/27/17 06:59 18:59 Intake Total 10 Balance 10 - Medications Medications: Current Medications Aspirin (Aspirin Chewable) 81 mg PO DAILY [facility] Last Admin: 10/27/17 09:14 Dose: 81 mg Dextrose (Dextrose 50% Inj) 0 ml IV STAT PRN; Protocol PRN Reason: Hypoglycemia Protocol Dextrose (Glutose 15) 0 gm PO ONCE PRN; Protocol PRN Reason: Hypoglycemia Protocol Gabapentin (Neurontin) 300 mg PO BID [facility] Last Admin: 10/27/17 09:14 Dose: 300 mg Glucagon (Glucagen Diagnostic Kit) 0 mg IM STAT PRN; Protocol PRN Reason: Hypoglycemia Protocol Heparin Sodium (Porcine) (Heparin) 5,000 units SC Q8 [facility] Last Admin: 10/27/17 05:57 Dose: 5,000 units Hydrochlorothiazide (Microzide) 12.5 mg PO DAILY [facility] Last Admin: 10/27/17 09:14 Dose: 12.5 mg Dextrose (Dextrose 5% In Water 1000 Ml) 1,000 mls @ 0 mls/hr IV .Q0M PRN; Protocol; Per Protocol PRN Reason: Hypoglycemia Protocol Insulin Aspart (Novolog) 0 unit SC ACHS [facility] Last Admin: 10/27/17 08:55 Dose: Not Given Insulin Aspart (Novolog) 14 unit SC AC [facility] Last Admin: 10/27/17 08:55 Dose: Not Given Insulin Glargine (Lantus) 28 unit SC HS [facility] Last Admin: 10/26/17 21:17 Dose: 28 unit Losartan Potassium (Cozaar) 100 mg PO DAILY [facility] Last Admin: 10/27/17 09:14 Dose: 100 mg Rosuvastatin Calcium (Crestor) 10 mg PO HS [facility] Last Admin: 10/26/17 21:16 Dose: 10 mg - Labs Labs: 10/26/17 07:47 10/26/17 07:47 PT 12.2 SECONDS (9.7-12.2) 10/24/17 19:18 INR 1.1 10/24/17 19:18 APTT 28 SECONDS (21-34) 10/24/17 19:18 Attending/Attestation - Attestation I have personally seen and examined this patient.: Yes I have fully participated in the care of the patient.: Yes I have reviewed all pertinent clinical information, including history, physical exam and plan: Yes Notes (Text): Patient seen, examined and case discussed with day-time resident. Patient reports mild chest pain overnight but denies any currently. patient reports she is worried about the cardiac cath. I have advised her we will not take blood work today. We will continue to monitor her sugars. Patient status changed to inpatient for cardiac cath scheduled on 10/29/[address] Macias. Renew telemetry Discharge Diagnoses: (1) Chest pain Abnormal Stress Test Assessment & Plan: * Instructional Design Technologist is Dr. Macias on board-->help appreciated * patient has DM and atypical chest pain with YOEL of 3. * Awaiting results of echocardiogram and stress test--Official reports * Patient is scheduled for cardiac cath on Sunday, October 29 * Aspirin 81mg PO daily * Start Coreg 3.125mg PO BID (hold SBP<100 and HR<60) * Cozaar 100mg POdaily * Crestor 10mg PO qHS * LDL: 142, HDL 31, Cholestrol: 177, T * BINTA X3: negative * Hgba1c:11.1 * Chest xray (10/24/17): no infiltrate or effusion * CT Chest (10/24/17): No CT evidence of pulmonary embolism, left breast lesion. Status: Acute (2) Diabetes mellitus--Uncontrolled Assessment & Plan: * Endocrinology (Dr. Reyna) on board-->help appreciated * A1C 11.1 despite lifestyle modifications * Hypoglycemic protocol * life educator referral * Occupational Therapy Technician referral * regular insulin slide subq * Start gabapentin 300 BID * Lantus 28 units subHS * Will need to 1/2 dose on Sunday in preparation for Sunday Cath; it will need to be resumed post-cath * Novolog 14 subq AC * Cozaar 100mg POdaily * Crestor 10mg PO qHS * patient is aware of screening exams for both opthalamology and podiatry in regards to diabetes management Status: Acute (3) History of abnormal mammogram Assessment & Plan: * breast exam was unremarkable. Given patients history, will need outpatient mammogram. * patient affirms she will f/u outpatient in regards to mammogram in light of maternal family hx of breast cancer and hx of abnormal breast exam (left breast) Status: Acute (4) HTN (hypertension) Assessment & Plan: * HCTZ 12.5mg PO daily * Cozaar 100mg PO daily * Start low dose Coreg 3.125mg PO BID Status: Chronic (5) Prophylactic measure Assessment & Plan: * heparin SC q8 * No GI ppx indicated at this time. * scds Status: Acute Disposition: changed to inpatient for cardiac cath on Sunday, October [address] Macias given abnormal stress test and CAD risk factors
--- NOTE | 2017-10-27 08:17 | CP.PCM.CON ---
History of Present Illness - History of Present Illness History of Present Illness: Patient seen and evaluated Multpiple risk factors High Hgb A1C Abnormal stress test Patient for Cath Sunday ASA, Statins and B blockers Past Patient History - Past Medical History & Family History Past Medical History?: Yes - Past Social History Smoking Status: Never Smoked - CARDIAC Hx Hypertension: Yes - MUSCULOSKELETAL/RHEUMATOLOGICAL Hx Falls: No - GASTROINTESTINAL Hx Gastrointestinal Disorders: Yes Hx Nausea: Yes - PSYCHIATRIC Hx Substance Use: No - SURGICAL HISTORY Hx Surgeries: Yes Hx Section: Yes Hx Hysterectomy: Yes (2012) Other/Comment: fibroid surgery 02/2012, ANKLE SX, D&C - ANESTHESIA Hx Anesthesia: Yes Hx Anesthesia Reactions: No Hx Malignant Hyperthermia: No Meds Home Medications: Home Medication List Medication Instructions Recorded Confirmed Type Aspirin [Aspirin Chewable] 81 mg PO DAILY #30 chew 10/26/17 Rx Atorvastatin Calcium 20 mg PO HS 30 Days tablet 10/26/17 Rx Blood Sugar Diagnostic, Drum 1 each ACHS 30 Days strip 10/26/17 Rx [Accu-Chek Compact] Gabapentin [Neurontin] 300 mg PO BID #60 cap 10/26/17 Rx Insulin Aspart, Recombinant 14 unit SC AC 30 Days unit 10/26/17 Rx [Novolog] Insulin Glargine, Recombina 28 unit SC HS 30 Days unit 10/26/17 Rx [Lantus] Lancets [Glucocom Lancets] 1 each ACHS 30 Days each 10/26/17 Rx Losartan/Hydrochlorothiazide 1 each PO DAILY #30 tablet 10/26/17 Rx [Losartan-Hctz 100-12.5 mg Tab] Allergies/Adverse Reactions: Allergies Allergy/AdvReac Type Severity Reaction Status Date / Time No Known Allergies Allergy Verified 10/24/17 17:30 - Medications Medications: Current Medications Aspirin (Aspirin Chewable) 81 mg PO DAILY [facility] Last Admin: 10/26/17 11:32 Dose: 81 mg Dextrose (Dextrose 50% Inj) 0 ml IV STAT PRN; Protocol PRN Reason: Hypoglycemia Protocol Dextrose (Glutose 15) 0 gm PO ONCE PRN; Protocol PRN Reason: Hypoglycemia Protocol Gabapentin (Neurontin) 300 mg PO BID [facility] Last Admin: 10/26/17 17:23 Dose: 300 mg Glucagon (Glucagen Diagnostic Kit) 0 mg IM STAT PRN; Protocol PRN Reason: Hypoglycemia Protocol Heparin Sodium (Porcine) (Heparin) 5,000 units SC Q8 [facility] Last Admin: 10/27/17 05:57 Dose: 5,000 units Hydrochlorothiazide (Microzide) 12.5 mg PO DAILY [facility] Last Admin: 10/26/17 11:31 Dose: 12.5 mg Dextrose (Dextrose 5% In Water 1000 Ml) 1,000 mls @ 0 mls/hr IV .Q0M PRN; Protocol; Per Protocol PRN Reason: Hypoglycemia Protocol Insulin Aspart (Novolog) 0 unit SC ACHS [facility] Last Admin: 10/26/17 21:15 Dose: Not Given Insulin Aspart (Novolog) 14 unit SC AC [facility] Last Admin: 10/26/17 17:46 Dose: 14 unit Insulin Glargine (Lantus) 28 unit SC HS [facility] Last Admin: 10/26/17 21:17 Dose: 28 unit Losartan Potassium (Cozaar) 100 mg PO DAILY [facility] Last Admin: 10/26/17 11:32 Dose: 100 mg Rosuvastatin Calcium (Crestor) 10 mg PO HS [facility] Last Admin: 10/26/17 21:16 Dose: 10 mg Results - Vital Signs Recent Vital Signs: Last Vital Signs Temp 98.2 F 10/27/17 04:15 Pulse 64 10/27/17 04:15 Resp 20 10/27/17 04:15 BP 111/72 10/27/17 04:15 Pulse Ox 96 10/27/17 04:15 - Labs Result Diagrams: 10/26/17 07:47 10/26/17 07:47 Labs: Laboratory Results - last 24 hr 10/26/17 10/26/17 10/26/17 07:47 07:47 11:21 WBC 10.7 RBC 4.48 Hgb 13.6 Hct 39.4 MCV 88.0 MCH 30.3 MCHC 34.5 RDW 12.9 Plt Count 253 MPV 10.5 Neut % (Auto) 56.4 Lymph % (Auto) 30.9 Mingo % (Auto) 7.8 Eos % (Auto) 4.0 Baso % (Auto) 0.9 Neut # (Auto) 6.1 Lymph # (Auto) 3.3 Mingo # (Auto) 0.8 Eos # (Auto) 0.4 Baso # (Auto) 0.1 Sodium 140 Potassium 4.1 Chloride 101 Carbon Dioxide 29 Anion Gap 14 BUN 16 Creatinine 0.7 Est GFR ( Amer) > 60 Est GFR (Non-Af Amer) > 60 POC Glucose (mg/dL) 295 H Random Glucose 195 H Calcium 9.3 Phosphorus 3.2 Magnesium 1.6 Total Bilirubin 0.2 AST 18 ALT 9 D Alkaline Phosphatase 81 Total Protein 7.2 Albumin 3.6 Globulin 3.6 Albumin/Globulin Ratio 1.0 10/26/17 10/26/17 10/27/17 16:47 20:49 06:00 WBC RBC Hgb Hct MCV MCH MCHC RDW Plt Count MPV Neut % (Auto) Lymph % (Auto) Mingo % (Auto) Eos % (Auto) Baso % (Auto) Neut # (Auto) Lymph # (Auto) Mingo # (Auto) Eos # (Auto) Baso # (Auto) Sodium Potassium Chloride Carbon Dioxide Anion Gap BUN Creatinine Est GFR ( Amer) Est GFR (Non-Af Amer) POC Glucose (mg/dL) 318 H 234 H 108 Random Glucose Calcium Phosphorus Magnesium Total Bilirubin AST ALT Alkaline Phosphatase Total Protein Albumin Globulin Albumin/Globulin Ratio Assessment & Plan - Assessment and Plan (Free Text) Assessment: Multpiple risk factors High Hgb A1C Abnormal stress test Patient for Cath Sunday ASA, Statins and B blockers
[2017-10-27] MEDS: (Novolog) Insulin Aspart, Recombinant 100 u/ml 10 ml vial SC SCH ×7 (08:55→22:37)
--- NOTE | 2017-10-27 12:21 | CARD ---
APPROVED REPORT EKG Measurement Heart [id number] <Conclusion> Normal sinus rhythm Nonspecific T wave abnormality Abnormal ECG
--- NOTE | 2017-10-27 12:51 | CARD ---
APPROVED REPORT EXAM: Two-dimensional and M-mode echocardiogram with Doppler and color Doppler. INDICATION Chest Pain RISK FACTORS Hypertension Diabetes 2D DIMENSIONS IVSd0.9 (0.7-1.1cm)LVDd3.9 (3.9-5.9cm) PWd1.0 (0.7-1.1cm)LVDs2.2 (2.5-4.0cm) FS (%) 43.1 %LVEF (%)65.0 (>50%) M-Mode DIMENSIONS Left Atrium (MM)3.76 (2.5-4.0cm)IVSd0.95 (0.7-1.1cm) Aortic Root3.31 (2.2-3.7cm)LVDd5.06 (4.0-5.6cm) Aortic Cusp Exc.2.04 (1.5-2.0cm)PWd0.88 (0.7-1.1cm) FS (%) 41 %LVDs2.98 (2.0-3.8cm) LVEF (%)72 (>50%) Mitral Valve MV E Kwtdyoeq17.7cm/sMV A Oafrffvl27.0cm/sE/A ratio0.7 TDI E/Lateral E'0.0E/Medial E'0.0 <Conclusion> normal size la,lv & ra rv. normal lv wall motion,thickness,systolic & diastolic function with lvef of 60-65%. normal aortic,mitral,tv & pv. trace mr,tr,pi & ai. no pericardial effusion. normal size aortic root & ivc.
--- NOTE | 2017-10-27 16:58 | PN ---
DATE: 10/27/2017 ENDO FOLLOWUP NOTE LOCATION: Room 650. This is a 47-year-old female with recent uncontrolled type 2 insulin requiring diabetes, presenting here with precordial chest pain and now also being followed closely for metabolic management because of recent hyperglycemic accelerations as noted thereof. Her glucose values are fluctuating but improved, and her glucose levels overnight have ranged from 108 to 234 and 285 mg/dL. Her latest chemistry showed a BUN of 16, sodium 140, potassium of 4.1, chloride 101, CO2 of 29, glucose 195, and creatinine 0.7. So at this time, we will modify once again her basal and bolus insulin regimen and increase the NovoLog to 14 units subcu t.i.d. before meals as given. We will increase also the basal insulin with Lantus to be given at 30 units subcu at bedtime daily as given. We will also be adding oral hypoglycemic therapy with Januvia given at 100 mg once daily in the morning and to start tomorrow. We will also consider addition of metformin as indicated. We will obtain serum chemistries and supplement accordingly as needed. We will follow and advise accordingly. Any Reyna MD
--- NOTE | 2017-10-27 21:05 | CARD ---
APPROVED REPORT Protocol: CASH Target HR: 174 bpm submaximum (85%): 148 bpm POST EXERCISE Target HR: No 44% of Maximum Predicted HR: 174 bpm Exercise duration: 00:00 min:sec, 0 Stage Exercise capacity: 1.0METs Max Blood Pressure: 132/80mmHg Chest Pain: Yes, Angina index: 0 Arrhythmia: Yes, ST Change: Yes, Deviation: 0 mm EXAM: Myocardial Perfusion STRESS/REST Imaging Protocol The imaging protocol used to acquire images was Stress Tc-99m/rest Tc-99m 1 day Stress Spect myocardial perfusion imaging was performed in supine position 45 minutes following the injection of 12.5 mCi of Tc-99 Myoview. Gated Rest Spect was performed 55 minutes after intravenous 32.1 mci Tc-99 Myoview injection. The images were gated to evaluate regional wall motion and calculate ventricular ejection fraction.Images were reconstructed using backfilter projection method in short horizontal and verticle long axis. Spect slices were generated. RESTING DATA EDV65.61uhMG3.75L/min ESV16.00mlMyocardial Vqbo448.00g Av. Heart Rate75.00bpm EF75.50% STRESS DATA EDV69.54szNO5.80L/min ESV21.00mlMyocardial Dpee294.00g EF69.50% Regional WT score at stress:1.00 Regional WM score at stress:0.00 Summed WT score at stress:13.00 Av. Heart Rate79.00bpmSummed WM score at stress:4.00 LV Perf. Quant 17 Seg. SSS5.00 17 Seg. SRS7.00 17 Seg. SDS1.00 Stress Defect Extent (% LAD)11.30Rest Defect Extent (% LAD)0.00Rev. Defect Extent (% LAD)6.30 Stress Defect Extent (% LCX)16.90Rest Defect Extent (% LCX)41.25Rev. Defect Extent (% LCX)0.00 Stress Defect Extent (% RCA)0.00Rest Defect Extent (% RCA)0.00Rev. Defect Extent (% RCA)0.00 Stress Defect Extent (% BECK)12.25Rest Defect Extent (% BECK)9.70Rev. Defect Extent (% BECK)2.50 Other Information Quality:Good IMPRESSION Abnormal Myocardial Perfusion exercise stress study Left Ventricle LV Function:Left ventricle systolic function is normal. The Ejection Fraction is >70%. Conclusion 1. Abnormal stress test. Apical Stress induced reversible defect suggestive of CAD. Normal EF 2. Recommend Cardiac cath
[2017-10-27] MEDS ORDERED: (Lantus) Insulin Glargine, Recombinant SC SCH (22:00)
--- NOTE | 2017-10-28 01:26 | CP.PCM.PN ---
<Malissa Adams - Last Filed: 10/28/17 03:01> Subjective - Date & Time of Evaluation Date of Evaluation: 10/28/17 Time of Evaluation: 01:26 - Subjective Subjective: Medicine progress note for Dr. Moctezuma Patient was seen and examined at bedside in no acute distress. Patient reports she had a rash on her forearm that started yesterday.. The rash is still present , but not itchy or painful. She is not sure how she got the rash, but states possible the fish she ate during lunch. She states she still has mild chest pain when she moves or changes position. Patient denies dyspnea, abdominal pain , nausea, vomiting, fevers, headaches, dysuria, diarrhea. No acute events overnight. Objective - Vital Signs/Intake and Output Vital Signs (last 24 hours): Temp Pulse Resp BP Pulse Ox 98.3 F 70 20 116/75 95 10/28/17 00:14 10/28/17 00:14 10/28/17 00:14 10/28/17 00:14 10/28/17 00:14 Intake and Output: 10/27/17 10/28/17 18:59 06:59 Intake Total 300 480 Balance 300 480 - Medications Medications: Current Medications Aspirin (Aspirin Chewable) 81 mg PO DAILY [facility] Last Admin: 10/27/17 09:14 Dose: 81 mg Carvedilol (Coreg) 3.125 mg PO BID [facility] Last Admin: 10/27/17 18:28 Dose: 3.125 mg Dextrose (Dextrose 50% Inj) 0 ml IV STAT PRN; Protocol PRN Reason: Hypoglycemia Protocol Dextrose (Glutose 15) 0 gm PO ONCE PRN; Protocol PRN Reason: Hypoglycemia Protocol Gabapentin (Neurontin) 300 mg PO BID [facility] Last Admin: 10/27/17 18:29 Dose: 300 mg Glucagon (Glucagen Diagnostic Kit) 0 mg IM STAT PRN; Protocol PRN Reason: Hypoglycemia Protocol Heparin Sodium (Porcine) (Heparin) 5,000 units SC Q8 [facility] Last Admin: 10/27/17 22:40 Dose: 5,000 units Hydrochlorothiazide (Microzide) 12.5 mg PO DAILY [facility] Last Admin: 10/27/17 09:14 Dose: 12.5 mg Dextrose (Dextrose 5% In Water 1000 Ml) 1,000 mls @ 0 mls/hr IV .Q0M PRN; Protocol; Per Protocol PRN Reason: Hypoglycemia Protocol Insulin Aspart (Novolog) 0 unit SC ACHS [facility] Last Admin: 10/27/17 22:37 Dose: 3 unit Insulin Aspart (Novolog) 14 unit SC AC [facility] Last Admin: 10/27/17 18:00 Dose: 14 unit Insulin Glargine (Lantus) 30 unit SC HS [facility] Last Admin: 10/27/17 22:38 Dose: 30 units Losartan Potassium (Cozaar) 100 mg PO DAILY [facility] Last Admin: 10/27/17 09:14 Dose: 100 mg Rosuvastatin Calcium (Crestor) 10 mg PO HS [facility] Last Admin: 10/27/17 22:39 Dose: 10 mg Sitagliptin Phosphate (Januvia) 100 mg PO DAILY [facility] - Labs Labs: 10/26/17 07:47 10/26/17 07:47 PT 12.2 SECONDS (9.7-12.2) 10/24/17 19:18 INR 1.1 10/24/17 19:18 APTT 28 SECONDS (21-34) 10/24/17 19:18 - Additional Findings Additional findings: - Constitutional Appears: No Acute Distress - Head Exam Head Exam: ATRAUMATIC, NORMAL INSPECTION - Eye Exam Eye Exam: EOMI, Normal appearance - ENT Exam ENT Exam: Mucous Membranes Moist - Respiratory Exam Respiratory Exam: Clear to Ausculation Bilateral, NORMAL BREATHING PATTERN. absent: Prolonged Expiratory Phase, Rales, Rhonchi, Wheezes - Cardiovascular Exam Cardiovascular Exam: REGULAR RHYTHM, +S1, +S2 - GI/Abdominal Exam GI & Abdominal Exam: Soft, Normal Bowel Sounds. absent: Distended, Tenderness - Extremities Exam Extremities Exam: Normal Inspection. absent: Pedal Edema, Tenderness Additional comments: well healed scar on right ankle - Neurological Exam Neurological Exam: Alert, Awake, Oriented x3 - Psychiatric Exam Psychiatric exam: Anxious - Skin Skin Exam: Erythematous rash on right antecubital fossa and forearm; nonerythematous maculopapular rash on left forearm. Assessment and Plan - Assessment and Plan (Free Text) Plan: (1) Chest pain Assessment & Plan: * Rehabilitation Engineer is Dr. Macias on board-->help appreciated * Patient has DM and atypical chest pain with YOEL of 3. * Echo: f/u results * Stress test: f/u results * Aspirin 81mg PO daily * LDL: 142, HDL 31, Cholestrol: 177, T * BINTA X3: negative * Hgba1c:11.1 * Chest xray (10/24/17): no infiltrate or effusion * CT Chest (10/24/17): No CT evidence of pulmonary embolism, left breast lesion. *Per cardiology, recommended for cardiac cath on 10/29/17. (2) Diabetes mellitus--Uncontrolled Assessment & Plan: * Endocrinology (Dr. Reyna) on board-->help appreciated * A1C 11.1 despite lifestyle modifications * Hypoglycemic protocol * business applications manager referral * Manager Urgent Care referral * ISS * Gabapentin 300 BID * Lantus 24units subHS * Novolog 10 subq AC * Cozaar 100mg POdaily * Crestor 10mg PO qHS (3) History of abnormal mammogram Assessment & Plan: * Breast exam was unremarkable. Given patients history, will need outpatient mammogram. * Patient affirms she will f/u outpatient in regards to mammogram in light of maternal family hx of breast cancer and hx of abnormal breast exam (left breast) (4) HTN (hypertension) Assessment & Plan: * HCTZ 12.5mg PO daily * Cozaar 100mg PO daily * Continue to monitor (5) Prophylactic measure Assessment & Plan: * DVT: SCDs, heparin SC q8- held for cath * No GI ppx indicated at this time. Disposition: Patient is NPO@midnight for cardiac cath on 10/29/17, with Dr. Macias. <Arcelia Moctezuma V - Last Filed: 10/28/17 08:38> Objective - Vital Signs/Intake and Output Vital Signs (last 24 hours): Temp Pulse Resp BP Pulse Ox 97.7 F 71 20 109/75 98 10/28/17 07:00 10/28/17 07:08 10/28/17 07:00 10/28/17 07:00 10/28/17 07:00 Intake and Output: 10/28/17 10/28/17 06:59 18:59 Intake Total 480 Balance 480 - Medications Medications: Current Medications Aspirin (Aspirin Chewable) 81 mg PO DAILY [facility] Last Admin: 10/27/17 09:14 Dose: 81 mg Carvedilol (Coreg) 3.125 mg PO BID [facility] Last Admin: 10/27/17 18:28 Dose: 3.125 mg Dextrose (Dextrose 50% Inj) 0 ml IV STAT PRN; Protocol PRN Reason: Hypoglycemia Protocol Dextrose (Glutose 15) 0 gm PO ONCE PRN; Protocol PRN Reason: Hypoglycemia Protocol Gabapentin (Neurontin) 300 mg PO BID [facility] Last Admin: 10/27/17 18:29 Dose: 300 mg Glucagon (Glucagen Diagnostic Kit) 0 mg IM STAT PRN; Protocol PRN Reason: Hypoglycemia Protocol Heparin Sodium (Porcine) (Heparin) 5,000 units SC Q8 [facility] Last Admin: 10/28/17 05:36 Dose: 5,000 units Hydrochlorothiazide (Microzide) 12.5 mg PO DAILY [facility] Last Admin: 10/27/17 09:14 Dose: 12.5 mg Dextrose (Dextrose 5% In Water 1000 Ml) 1,000 mls @ 0 mls/hr IV .Q0M PRN; Protocol; Per Protocol PRN Reason: Hypoglycemia Protocol Insulin Aspart (Novolog) 0 unit SC ACHS [facility] Last Admin: 10/28/17 07:59 Dose: Not Given Insulin Aspart (Novolog) 14 unit SC AC [facility] Last Admin: 10/27/17 18:00 Dose: 14 unit Insulin Glargine (Lantus) 30 unit SC HS [facility] Last Admin: 10/27/17 22:38 Dose: 30 units Losartan Potassium (Cozaar) 100 mg PO DAILY [facility] Last Admin: 10/27/17 09:14 Dose: 100 mg Rosuvastatin Calcium (Crestor) 10 mg PO HS [facility] Last Admin: 10/27/17 22:39 Dose: 10 mg Sitagliptin Phosphate (Januvia) 100 mg PO DAILY [facility] - Labs Labs: 10/26/17 07:47 10/26/17 07:47 PT 12.2 SECONDS (9.7-12.2) 10/24/17 19:18 INR 1.1 10/24/17 19:18 APTT 28 SECONDS (21-34) 10/24/17 19:18 Attending/Attestation - Attestation I have personally seen and examined this patient.: Yes I have fully participated in the care of the patient.: Yes I have reviewed all pertinent clinical information, including history, physical exam and plan: Yes Notes (Text): Patient seen, examined and case discussed with day-time resident. Patient reports she is worried about the procedure tomorrow. I have showed her an example of cardiac cath on youtube if she wants further knowledge. Cardiology to explain details of the procedure. Patient has mild itchiness over the left forearm, unclear if its due to detergent in her sheets. Patient reports they have not removed the linen since last . Patient reports only food allergy is mangoes and she does not have mangos yesterday. Will start Benadryl and solumedrol IV. There is no apparent erythema, no anaphylactic response. Renew telemetry. Patient is awaiting cardiac cath tomorrow with Dr. Macias. Discharge Diagnoses: (1) Chest pain Abnormal Stress Test Assessment & Plan: * Rehabilitation Engineer is Dr. Macias on board-->help appreciated * patient has DM and atypical chest pain with YOEL of 3. * Echocardiogram (10/25/17): normal size, la, lv, and ra rv, normal lv wall motion , thickness, systolic and diastolic function with lvef 60-65%, normal aortic, mitral, tv, and pv, trace mr, tr, pi, ai, no pericardial effusion, normal size arotic root and ivc * Stress test (10/27/17): abnormal stress test. Apical stress induced reversible defect suggestive of CAD. normal EF. Recommend Cardiac cath * Patient is scheduled for cardiac cath on Sunday, October 29 * Aspirin 81mg PO daily * Coreg 3.125mg PO BID (hold SBP<100 and HR<60) * Cozaar 100mg POdaily * Crestor 10mg PO qHS * LDL: 142, HDL 31, Cholestrol: 177, T * BINTA X3: negative * Hgba1c:11.1 * Chest xray (10/24/17): no infiltrate or effusion * CT Chest (10/24/17): No CT evidence of pulmonary embolism, left breast lesion. Status: Acute (2) Diabetes mellitus--Uncontrolled Assessment & Plan: * Endocrinology (Dr. Reyna) on board-->help appreciated * A1C 11.1 despite lifestyle modifications * Hypoglycemic protocol * business applications manager referral * Manager Urgent Care referral * regular insulin slide subq * Start gabapentin 300 BID * Lantus 30 units subHS * Will need to 1/2 dose on Sunday in preparation for Sunday Cath (15 units); it will need to be resumed post-cath * Novolog 14 subq AC * Januvia 100mg PO daily * Cozaar 100mg POdaily * Crestor 10mg PO qHS * patient is aware of screening exams for both opthalamology and podiatry in regards to diabetes management Status: Acute (3) History of abnormal mammogram Assessment & Plan: * breast exam was unremarkable. Given patients history, will need outpatient mammogram. * patient affirms she will f/u outpatient in regards to mammogram in light of maternal family hx of breast cancer and hx of abnormal breast exam (left breast) Status: Acute (4) HTN (hypertension) Assessment & Plan: * HCTZ 12.5mg PO daily * Cozaar 100mg PO daily * Coreg 3.125mg PO BID Status: Chronic (5) Allergic reaction Assessment & Plan: * unclear if its related to food or detergent in her sheets * Mild-->limited to left upper extremity symptom: itchiness; started 10/27/17 following lunch * Will start Benadryl, Solumedrol, and Pepcid IV for 24 hours. Status: Acute (6) Prophylactic measure Assessment & Plan: * hold heparin SC q8 for cardiac cath * No GI ppx indicated at this time. * scds Status: Acute Disposition: Schedule for cardiac cath on Sunday, [address] Macias given abnormal stress test and CAD risk factors Will give 1/2 dose long acting Insulin tonight for cardiac cath tomorrow; please resume post-cath
[2017-10-28] MEDS: (Novolog) Insulin Aspart, Recombinant 100 u/ml 10 ml vial SC SCH ×7 (07:59→21:50)
[2017-10-28] MEDS ORDERED: MethylPREDNISolone 40 mg Vial IVP STA (08:38)
[2017-10-28] MEDS ORDERED: DiphenhydrAMINE 50 mg/ml Inj IVP STA (08:38)
[2017-10-28] MEDS ORDERED: DiphenhydrAMINE 50 mg/ml Inj IVP PRN (08:44)
[2017-10-28] MEDS ORDERED: (Lantus) Insulin Glargine, Recombinant SC SCH (08:48)
[2017-10-28] MEDS: MethylPREDNISolone 40 mg Vial IVP SCH ×3 (09:17→22:43)
--- NOTE | 2017-10-28 15:45 | PN ---
DATE: 10/28/2017 ENDO FOLLOWUP NOTE LOCATION: In room 650. SUBJECTIVE: This is a 47-year-old female with recent uncontrolled type 2 insulin-requiring diabetes, now being followed closely for metabolic management. She presented here with precordial chest pain and is actually scheduled tomorrow for a cardiac cath procedure by Dr. 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 Her glycemic levels are fluctuating, but improved and the latest glucose levels have ranged from 200 to 227 mg/dL. However, it was still 317 at bedtime last night, most likely related to the withholding of the dinner insulin dosing by the nursing staff with the glucose with a normal glucose level of 168 mg/dL. Her latest chemistry showed a BUN of 16, sodium 140, potassium 4.1, chloride 101, CO2 of 29, glucose 195, creatinine 0.7. So, at this time we will continue the same basal and bolus insulin regimen to allow her dose equilibration and keep her on the NovoLog given as 14 units subcu t.i.d. before meals as given. We will continue the Lantus given as 30 units subcu at bedtime daily as ordered. We will continue also the low dose correction scale using NovoLog insulin to obviate hypoglycemia and detailed orders have been given. More over, we will also continue the oral hypoglycemic therapy given as Januvia as 100 mg once daily as ordered. We will follow and advise accordingly. Any Reyna MD
--- NOTE | 2017-10-28 22:06 | CP.PCM.PN ---
Subjective - Date & Time of Evaluation Date of Evaluation: 10/28/17 Time of Evaluation: 19:35 - Subjective Subjective: Patient with chest pain Risk factors Abnormal stress test For Cardiac cath in am Objective - Vital Signs/Intake and Output Vital Signs (last 24 hours): Temp Pulse Resp BP Pulse Ox 98.3 F 93 H 20 148/85 97 10/28/17 15:42 10/28/17 15:42 10/28/17 15:42 10/28/17 15:42 10/28/17 15:42 Intake and Output: 10/28/17 10/29/17 18:59 06:59 Intake Total 300 Balance 300 - Medications Medications: Current Medications Aspirin (Aspirin Chewable) 81 mg PO DAILY [facility] Last Admin: 10/28/17 09:16 Dose: 81 mg Carvedilol (Coreg) 3.125 mg PO BID [facility] Last Admin: 10/28/17 17:58 Dose: 3.125 mg Dextrose (Dextrose 50% Inj) 0 ml IV STAT PRN; Protocol PRN Reason: Hypoglycemia Protocol Dextrose (Glutose 15) 0 gm PO ONCE PRN; Protocol PRN Reason: Hypoglycemia Protocol Diphenhydramine HCl (Benadryl) 25 mg IVP Q8 PRN PRN Reason: Itching / Pruritus Gabapentin (Neurontin) 300 mg PO BID [facility] Last Admin: 10/28/17 17:58 Dose: 300 mg Glucagon (Glucagen Diagnostic Kit) 0 mg IM STAT PRN; Protocol PRN Reason: Hypoglycemia Protocol Heparin Sodium (Porcine) (Heparin) 5,000 units SC Q8 [facility] Stop: 10/28/17 23:59 Last Admin: 10/28/17 13:06 Dose: 5,000 units Hydrochlorothiazide (Microzide) 12.5 mg PO DAILY [facility] Last Admin: 10/28/17 09:11 Dose: 12.5 mg Dextrose (Dextrose 5% In Water 1000 Ml) 1,000 mls @ 0 mls/hr IV .Q0M PRN; Protocol; Per Protocol PRN Reason: Hypoglycemia Protocol Insulin Aspart (Novolog) 0 unit SC ACHS [facility] Last Admin: 10/28/17 21:50 Dose: Not Given Insulin Aspart (Novolog) 14 unit SC AC [facility] Last Admin: 10/28/17 18:00 Dose: 14 unit Insulin Glargine (Lantus) 15 unit SC HS [facility] Last Admin: 10/28/17 22:04 Dose: 15 units Losartan Potassium (Cozaar) 100 mg PO DAILY [facility] Last Admin: 10/28/17 09:16 Dose: 100 mg Methylprednisolone (Solu-Medrol) 40 mg IVP Q8H [facility] Stop: 10/29/17 00:46 Last Admin: 10/28/17 16:45 Dose: Not Given Rosuvastatin Calcium (Crestor) 10 mg PO HS [facility] Last Admin: 10/28/17 22:02 Dose: 10 mg Sitagliptin Phosphate (Januvia) 100 mg PO DAILY [facility] Last Admin: 10/28/17 09:17 Dose: 100 mg - Labs Labs: 10/26/17 07:47 10/26/17 07:47 PT 12.2 SECONDS (9.7-12.2) 10/24/17 19:18 INR 1.1 10/24/17 19:18 APTT 28 SECONDS (21-34) 10/24/17 19:18
[2017-10-29 06:35] LABS: BASO % 0.1 % (0.0-2.0); HEMOGLOBIN 14.2 g/dL (11.0-16.0); LYMPH # 1.6 K/uL (1.0-4.3); LYMPH % 7.6 % (20.0-40.0); MEAN CELL VOLUME 87.7 fL (81.0-99.0); MEAN CORPUSCULAR HEMOGLOBIN 29.9 pg (27.0-31.0); MEAN CORPUSCULAR HGB CONC 34.1 g/dL (33.0-37.0); MONO # 0.4 K/uL (0.0-0.8); MONO % 1.7 % (0.0-10.0); NEUT # 18.7 K/uL (1.8-7.0); NEUT % 90.6 % (50.0-75.0); PLATELET COUNT 321 K/uL (130-400); RBC 4.74 Mil/uL (3.80-5.20); RED CELL DISTRIBUTION WIDTH 13.1 % (11.5-14.5); WHITE BLOOD COUNT 20.7 K/uL (4.8-10.8)
[2017-10-29] MEDS: MethylPREDNISolone 40 mg Vial IVP SCH (06:35)
[2017-10-29 06:37] LABS: ALB/GLOB RATIO 0.9 (1.0-2.1); ALBUMIN 3.9 g/dL (3.5-5.0); ALT/SGPT 21 U/L (9-52); AST/SGOT 19 U/L (14-36); BLOOD UREA NITROGEN 21 mg/dL (7-17); GFR AFRICAN-AMERICAN > 60; GFR NON-AFRICAN AMERICAN > 60
[2017-10-29] MEDS: (Novolog) Insulin Aspart, Recombinant 100 u/ml 10 ml vial SC SCH ×7 (07:18→21:45)
[2017-10-29 08:12] LABS: LYMPHOCYTE 8 % (20-40); MONOCYTE 1 % (0-10); NEUTROPHIL 91 % (50-75); TOTAL CELLS COUNTED 100
[2017-10-29 08:14] LABS: PLATELET ESTIMATE NORMAL (NORMAL)
--- NOTE | 2017-10-29 16:04 | CP.PCM.PN ---
Subjective - Date & Time of Evaluation Date of Evaluation: 10/29/17 Time of Evaluation: 16:02 - Subjective Subjective: Patient seen and examined at bedside. Nervous for cath today. Risks and benefits of the procedure explained. Patient did not have any complaints at the time of interview. No chest pain or SOB. Ambulating without difficulty. Objective - Vital Signs/Intake and Output Vital Signs (last 24 hours): Temp Pulse Resp BP Pulse Ox 97.3 F L 74 18 137/84 95 10/29/17 07:00 10/29/17 07:27 10/29/17 07:00 10/29/17 07:00 10/29/17 07:00 Intake and Output: 10/29/17 10/29/17 06:59 18:59 Intake Total 350 Balance 350 - Medications Medications: Current Medications Aspirin (Aspirin Chewable) 81 mg PO DAILY [facility] Last Admin: 10/29/17 09:09 Dose: 81 mg Carvedilol (Coreg) 3.125 mg PO BID [facility] Last Admin: 10/29/17 09:09 Dose: 3.125 mg Dextrose (Dextrose 50% Inj) 0 ml IV STAT PRN; Protocol PRN Reason: Hypoglycemia Protocol Dextrose (Glutose 15) 0 gm PO ONCE PRN; Protocol PRN Reason: Hypoglycemia Protocol Diphenhydramine HCl (Benadryl) 25 mg IVP Q8 PRN PRN Reason: Itching / Pruritus Gabapentin (Neurontin) 300 mg PO BID [facility] Last Admin: 10/29/17 09:09 Dose: 300 mg Glucagon (Glucagen Diagnostic Kit) 0 mg IM STAT PRN; Protocol PRN Reason: Hypoglycemia Protocol Hydrochlorothiazide (Microzide) 12.5 mg PO DAILY [facility] Last Admin: 10/29/17 09:09 Dose: 12.5 mg Dextrose (Dextrose 5% In Water 1000 Ml) 1,000 mls @ 0 mls/hr IV .Q0M PRN; Protocol; Per Protocol PRN Reason: Hypoglycemia Protocol Insulin Aspart (Novolog) 0 unit SC ACHS [facility] Last Admin: 10/29/17 11:40 Dose: Not Given Insulin Aspart (Novolog) 14 unit SC AC [facility] Last Admin: 10/29/17 11:40 Dose: Not Given Insulin Glargine (Lantus) 30 unit SC HS [facility] Losartan Potassium (Cozaar) 100 mg PO DAILY [facility] Last Admin: 10/29/17 09:09 Dose: 100 mg Rosuvastatin Calcium (Crestor) 10 mg PO HS [facility] Last Admin: 10/28/17 22:02 Dose: 10 mg Sitagliptin Phosphate (Januvia) 100 mg PO DAILY [facility] Last Admin: 10/29/17 09:09 Dose: Not Given - Labs Labs: 10/29/17 06:18 18 06:18 PT 12.2 SECONDS (9.7-12.2) 10/24/17 19:18 INR 1.1 10/24/17 19:18 APTT 28 SECONDS (21-34) 10/24/17 19:18 - Constitutional Appears: Well - Head Exam Head Exam: ATRAUMATIC, NORMAL INSPECTION, NORMOCEPHALIC - Eye Exam Eye Exam: EOMI, Normal appearance, PERRL Pupil Exam: NORMAL ACCOMODATION, PERRL - ENT Exam ENT Exam: Mucous Membranes Moist, Normal Exam - Neck Exam Neck Exam: Full ROM, Normal Inspection. absent: Lymphadenopathy - Respiratory Exam Respiratory Exam: Clear to Ausculation Bilateral, NORMAL BREATHING PATTERN - Cardiovascular Exam Cardiovascular Exam: REGULAR RHYTHM, +S1, +S2. absent: Murmur - GI/Abdominal Exam GI & Abdominal Exam: Soft, Normal Bowel Sounds. absent: Tenderness - Extremities Exam Extremities Exam: Full ROM, Normal Capillary Refill, Normal Inspection. absent : Joint Swelling, Pedal Edema - Back Exam Back Exam: NORMAL INSPECTION - Neurological Exam Neurological Exam: Alert, Awake, CN II-XII Intact, Normal Gait, Oriented x3 - Psychiatric Exam Psychiatric exam: Normal Affect, Normal Mood - Skin Skin Exam: Dry, Intact, Normal Color, Warm Assessment and Plan (1) Chest pain Assessment & Plan: Patient had abnormal stress test on Sunday. Loom Changer is Dr. Macias. Cardiac cath today. Will follow up cardio reccs after the procedure. At this time continue ASA, Coreg, HCTZ, Losartan and crestor. Trops negative to date. Ekg NSR Status: Acute (2) Diabetes mellitus Assessment & Plan: Failed lifestyle modifications. Dr. Reyna consulted. A1C is 11. was started on Aspart 14 AC and Lantus 30 HS as well as Januvia. Will continue to monitor blood sugar closely and adjust insulin as needed. Will need to follow up as outpatient with PMD for further management of her insulin. Was shown how to use insulin. Auto Electrician talked with the patient. Also started on Gabapentin for bilateral foot pain, Tolerating well. Status: Chronic (3) History of abnormal mammogram Assessment & Plan: Will need to set up mammogram as outpatient. Instructed the patient to do so Status: Chronic (4) HTN (hypertension) Assessment & Plan: Continue Coreg, losartan and hctz Status: Chronic (5) Prophylactic measure Assessment & Plan: continue heparin SCq8 and SCD No GI PPX indicated at this time. Status: Acute
--- NOTE | 2017-10-29 16:08 | CARD ---
APPROVED REPORT EKG Measurement Heart [id number] <Conclusion> Normal sinus rhythm Nonspecific T wave abnormality Abnormal ECG
[2017-10-29] MEDS ORDERED: Midazolam 2 MG/2 ML VIAL ONE (16:34)
--- NOTE | 2017-10-29 17:42 | CP.PCM.PN ---
Subjective - Date & Time of Evaluation Date of Evaluation: 10/29/17 Time of Evaluation: 17:41 - Subjective Subjective: Patient s/p cath Normal coronaries and normal EF Medical management OOB to chair after 7.30pm tonight Elevated WBC count Repeat CBC in am Objective - Vital Signs/Intake and Output Vital Signs (last 24 hours): Temp Pulse Resp BP Pulse Ox 97.3 F L 74 18 137/84 95 10/29/17 07:00 10/29/17 07:27 10/29/17 07:00 10/29/17 07:00 10/29/17 07:00 Intake and Output: 10/29/17 10/29/17 06:59 18:59 Intake Total 350 Balance 350 - Medications Medications: Current Medications Aspirin (Aspirin Chewable) 81 mg PO DAILY [facility] Last Admin: 10/29/17 09:09 Dose: 81 mg Carvedilol (Coreg) 3.125 mg PO BID [facility] Last Admin: 10/29/17 09:09 Dose: 3.125 mg Dextrose (Dextrose 50% Inj) 0 ml IV STAT PRN; Protocol PRN Reason: Hypoglycemia Protocol Dextrose (Glutose 15) 0 gm PO ONCE PRN; Protocol PRN Reason: Hypoglycemia Protocol Diphenhydramine HCl (Benadryl) 25 mg IVP Q8 PRN PRN Reason: Itching / Pruritus Gabapentin (Neurontin) 300 mg PO BID [facility] Last Admin: 10/29/17 09:09 Dose: 300 mg Glucagon (Glucagen Diagnostic Kit) 0 mg IM STAT PRN; Protocol PRN Reason: Hypoglycemia Protocol Hydrochlorothiazide (Microzide) 12.5 mg PO DAILY [facility] Last Admin: 10/29/17 09:09 Dose: 12.5 mg Dextrose (Dextrose 5% In Water 1000 Ml) 1,000 mls @ 0 mls/hr IV .Q0M PRN; Protocol; Per Protocol PRN Reason: Hypoglycemia Protocol Insulin Aspart (Novolog) 0 unit SC ACHS [facility] Last Admin: 10/29/17 11:40 Dose: Not Given Insulin Aspart (Novolog) 14 unit SC AC [facility] Last Admin: 10/29/17 11:40 Dose: Not Given Insulin Glargine (Lantus) 30 unit SC HS [facility] Losartan Potassium (Cozaar) 100 mg PO DAILY [facility] Last Admin: 10/29/17 09:09 Dose: 100 mg Rosuvastatin Calcium (Crestor) 10 mg PO HS [facility] Last Admin: 10/28/17 22:02 Dose: 10 mg Sitagliptin Phosphate (Januvia) 100 mg PO DAILY [facility] Last Admin: 10/29/17 09:09 Dose: Not Given - Labs Labs: 10/29/17 06:18 10/29/17 06:18 PT 12.2 SECONDS (9.7-12.2) 10/24/17 19:18 INR 1.1 10/24/17 19:18 APTT 28 SECONDS (21-34) 10/24/17 19:18
[2017-10-29] MEDS ORDERED: Sodium Chloride 0.9% 1,000 ML IV SCH (18:00)
[2017-10-29 19:36] VITALS: RESP 20
[2017-10-29] MEDS ORDERED: (Novolog) Insulin Aspart, Recombinant 100 u/ml 10 ml vial SC STA (20:04)
--- NOTE | 2017-10-29 21:10 | PN ---
DATE: 10/29/2017 ENDO FOLLOWUP NOTE LOCATION: Room 650 at [facility]. SUBJECTIVE: This is a 47-year-old female with recent uncontrolled type 2 insulin-requiring diabetes, now being followed closely for metabolic management. Her glycemic levels are fluctuating, but improved, and the latest glucose levels today were fluctuating and elevated because they held off on the NovoLog regimen this morning as she was scheduled for cardiac catheterization procedure today. Her glucose values have ranged from 278 to 283 mg/dL. Her latest chemistry showed a BUN of 21, sodium 137, potassium 4.8, chloride 99, CO2 of 27, glucose 307, and creatinine 0.8. ASSESSMENT: At this time, we will resume her modified basal and bolus insulin regimen as ordered and continue the Lantus at 30 units subcu at bedtime daily to start tonight. We will add Januvia at 100 mg daily as ordered. We will also resume the NovoLog given as 14 units subcu three times daily before meals to start at dinnertime today as ordered. We will obtain serial chemistries and supplement accordingly as needed. We will follow. Any Reyna MD
[2017-10-29] MEDS ORDERED: (Lantus) Insulin Glargine, Recombinant SC SCH (22:00)
--- NOTE | 2017-10-30 03:50 | CARDCATH ---
PROCEDURE DATE: 10/29/2017 PROCEDURES: 1. Left heart catheterization. 2. Coronary angiogram. REFERRING PHYSICIAN: 1. Rajesh Jason MD 2. Arcelia Moctezuma DO CLINICAL INDICATIONS: Chest pain, hypertension, hyperlipidemia, diabetes, and abnormal stress test. PERFORMING PHYSICIAN: Memo Macias MD DESCRIPTION OF PROCEDURE: After informed consent, the patient was prepped and draped in the usual sterile fashion. Lidocaine 2% was given in the right groin for local anesthesia. Using ultrasound guidance, common femoral artery access and 6-Albanian sheath was introduced. A JL4 6-Albanian diagnostic catheter engaged into left coronary artery. Contrast was injected and left coronary angiogram was done. Then JR4 6-Albanian diagnostic catheter crossed into the left ventricle across aortic valve. LV end-diastolic pressure was measured. Contrast was injected and LV angiogram was done. Then the catheter was pulled back and gradient across the aortic valve was measured. Then using the 5-Albanian catheter, right coronary artery was engaged. Contrast was injected and right coronary angiogram was done. The patient tolerated the procedure well. Post procedure, hemostasis accomplished using Angio-Seal closure device. FINDINGS: 1. Left main coronary artery is patent. 2. LAD and diagonal branches are patent. 3. Left circumflex and obtuse marginal branches are patent. 4. Right coronary artery is dominant and patent. 5. LV ejection fraction is approximately 70%. No wall motion abnormalities noted. EDP is 18. No gradient across the aortic valve. IMPRESSION: 1. Normal coronary arteries. 2. Normal left ventricular systolic function. PLAN: Recommend medical management including risk-factor modification. Memo Macias MD
[2017-10-30 06:10] LABS: BASO % 0.2 % (0.0-2.0); EOS % 0.1 % (0.0-4.0); HEMOGLOBIN 12.7 g/dL (11.0-16.0); LYMPH # 3.6 K/uL (1.0-4.3); LYMPH % 16.9 % (20.0-40.0); MEAN CELL VOLUME 88.5 fL (81.0-99.0); MEAN CORPUSCULAR HEMOGLOBIN 29.6 pg (27.0-31.0); MEAN CORPUSCULAR HGB CONC 33.5 g/dL (33.0-37.0); MEAN PLATELET VOLUME 10.4 fL (7.2-11.7); MONO # 1.6 K/uL (0.0-0.8); MONO % 7.4 % (0.0-10.0); NEUT # 16.2 K/uL (1.8-7.0); NEUT % 75.4 % (50.0-75.0); RBC 4.27 Mil/uL (3.80-5.20); RED CELL DISTRIBUTION WIDTH 13.5 % (11.5-14.5); WHITE BLOOD COUNT 21.5 K/uL (4.8-10.8)
--- NOTE | 2017-10-30 07:20 | CP.PCM.DIS ---
Provider - Provider Date of Admission: 10/27/17 10:04 Attending physician: Arcelia Moctezuma DO Primary care physician: Taqueria Consults: Cards: Gilberto Time Spent in preparation of Discharge (in minutes): 45 Diagnosis - Discharge Diagnosis (1) Chest pain Status: Resolved (2) Diabetes mellitus Status: Chronic Priority: High (3) History of abnormal mammogram Status: Chronic Priority: Medium (4) HTN (hypertension) Status: Chronic Priority: Medium (5) Prophylactic measure Status: Resolved Priority: Medium Hospital Course - Lab Results Lab Results: Most Recent Lab Values WBC 21.5 K/uL (4.8-10.8) H 10/30/17 06:03 RBC 4.27 Mil/uL (3.80-5.20) 10/30/17 06:03 Hgb 12.7 g/dL (11.0-16.0) 10/30/17 06:03 Hct 37.8 % (34.0-47.0) 10/30/17 06:03 MCV 88.5 fL (81.0-99.0) 10/30/17 06:03 MCH 29.6 pg (27.0-31.0) 10/30/17 06:03 MCHC 33.5 g/dL (33.0-37.0) 10/30/17 06:03 RDW 13.5 % (11.5-14.5) 10/30/17 06:03 Plt Count 253 K/uL (130-400) 10/30/17 06:03 MPV 10.4 fL (7.2-11.7) 10/30/17 06:03 Neut % (Auto) 75.4 % (50.0-75.0) H 10/30/17 06:03 Lymph % (Auto) 16.9 % (20.0-40.0) L 10/30/17 06:03 [place] % (Auto) 7.4 % (0.0-10.0) 10/30/17 06:03 Eos % (Auto) 0.1 % (0.0-4.0) 10/30/17 06:03 Baso % (Auto) 0.2 % (0.0-2.0) 10/30/17 06:03 Neut # (Auto) 16.2 K/uL (1.8-7.0) H 10/30/17 06:03 Lymph # (Auto) 3.6 K/uL (1.0-4.3) 10/30/17 06:03 [place] # (Auto) 1.6 K/uL (0.0-0.8) H 10/30/17 06:03 Eos # (Auto) 0.0 K/uL (0.0-0.7) 10/30/17 06:03 Baso # (Auto) 0.0 K/uL (0.0-0.2) 10/30/17 06:03 Neutrophils % (Manual) 91 % (50-75) H 10/29/17 06:18 Lymphocytes % (Manual) 8 % (20-40) L 10/29/17 06:18 Monocytes % (Manual) 1 % (0-10) 10/29/17 06:18 Platelet Estimate Normal (NORMAL) 10/29/17 06:18 RBC Morphology Normal 10/29/17 06:18 PT 12.2 SECONDS (9.7-12.2) 10/24/17 19:18 INR 1.1 10/24/17 19:18 APTT 28 SECONDS (21-34) 10/24/17 19:18 D-Dimer, Quantitative 356 ng/mlDDU (0-243) H 10/24/17 19:18 Sodium 137 mmol/L (132-148) 10/29/17 06:18 Potassium 4.8 mmol/L (3.6-5.2) 10/29/17 06:18 Chloride 99 mmol/L (98-107) 10/29/17 06:18 Carbon Dioxide 27 mmol/L (22-30) 10/29/17 06:18 Anion Gap 16 (10-20) 10/29/17 06:18 BUN 21 mg/dL (7-17) H 10/29/17 06:18 Creatinine 0.8 mg/dL (0.7-1.2) 10/29/17 06:18 Est GFR ( Amer) > 60 10/29/17 06:18 Est GFR (Non-Af Amer) > 60 10/29/17 06:18 POC Glucose (mg/dL) 235 mg/dL (65-110) H 10/30/17 06:07 Random Glucose 307 mg/dL (65-105) H 10/29/17 06:18 Hemoglobin A1c 11.1 % (4.2-6.5) H 10/25/17 07:16 Calcium 10.0 mg/dl (8.6-10.4) 10/29/17 06:18 Phosphorus 3.2 mg/dL (2.5-4.5) 10/26/17 07:47 Magnesium 1.6 mg/dL (1.6-2.3) 10/26/17 07:47 Total Bilirubin 0.6 mg/dL (0.2-1.3) 10/29/17 06:18 AST 19 U/L (14-36) 10/29/17 06:18 ALT 21 U/L (9-52) 10/29/17 06:18 Alkaline Phosphatase 93 U/L (38-126) 10/29/17 06:18 Total Creatine Kinase 33 U/L (30-135) 10/25/17 07:16 CK-MB (Mass) < 0.22 ng/mL (0.0-3.38) 10/25/17 07:16 Troponin I < 0.0120 ng/mL (0.00-0.120) 10/25/17 07:16 Total Protein 8.0 g/dL (6.3-8.3) 10/29/17 06:18 Albumin 3.9 g/dL (3.5-5.0) 10/29/17 06:18 Globulin 4.1 gm/dL (2.2-3.9) H 10/29/17 06:18 Albumin/Globulin Ratio 0.9 (1.0-2.1) L 10/29/17 06:18 Triglycerides 83 mg/dL (0-149) 10/25/17 07:16 Cholesterol 177 mg/dL (0-199) 10/25/17 07:16 LDL Cholesterol Direct 142 mg/dL (0-129) H 10/25/17 07:16 HDL Cholesterol 31 mg/dL (30-70) 10/25/17 07:16 Free T4 1.16 ng/dL (0.78-2.19) 10/25/17 07:16 TSH 3rd Generation 3.56 mIU/L (0.46-4.68) 10/25/17 07:16 Urine Color Yellow (YELLOW) 06/06/18 18:56 Urine Clarity Clear (Clear) 10/24/17 18:56 Urine pH 5.0 (5.0-8.0) 10/24/17 18:56 Ur Specific [place] 1.031 (1.003-1.030) H 10/24/17 18:56 Urine Protein Negative mg/dL (NEGATIVE) 10/24/17 18:56 Urine Glucose (UA) 3+ mg/dL (Normal) H 10/24/17 18:56 Urine Ketones Negative mg/dL (NEGATIVE) 10/24/17 18:56 Urine Blood Negative (NEGATIVE) 10/24/17 18:56 Urine Nitrate Negative (NEGATIVE) 10/24/17 18:56 Urine Bilirubin Negative (NEGATIVE) 10/24/17 18:56 Urine Urobilinogen Normal mg/dL (0.2-1.0) 10/24/17 18:56 Ur Leukocyte Esterase Neg Kelley/uL (Negative) 10/24/17 18:56 Urine WBC (Auto) 1 /hpf (0-5) 10/24/17 18:56 Urine RBC (Auto) 3 /hpf (0-3) 10/24/17 18:56 Ur Squamous Epith Cells 1 /hpf (0-5) 10/24/17 18:56 Urine Bacteria Occ (<OCC) H 10/24/17 18:56 Urine HCG, Qual Negative (NEGATIVE) 10/24/17 18:56 - Hospital Course Hospital Course: On Admission: Patient states she started to have chest pain for one month. Patient states she has numbness of tips of her fingers of left hand and pain along her left arm. Patient denies anything making it better or worse. She said she tried taking aspirin for the pain but it does not go away immediately. Pain lasts for 1 hour and does not go away. Patient had EKG done when the symptoms started at her PMD's office, but nothing came back positive. Patient has not seen a filling machine tender outpatient for a workup. Patient was diagnosed with depression 1 month ago due to depression screening at the Doctor's office and was given escitalopram which patient states she uses intermittently. Patient denies suicidal ideation, plans to harm self or others. Patient states she just feels overwhelmed, and feels a lot of pressure on herself to stay strong. Patient states she is worried that medications can cause side effects like the blood clot she got in her arm on a previous admission to [facility] for menorrhagia leading to hysterectomy about four years ago. Patient states she was found to have a blood clot of her left upper extremity and had to be readmitted for treatment. Patient says currently she feels like she has a knot in her left armpit and is worried because her sisters on mother's side had from breast cancer and she had a biopsy with mesh placement on left breast (which may explain CT chest finding of left breast lesion) Hospital Course: Patient was seen by and started on Lantus and Aspart. She needs to follow up with PMD as outpatient to change insulin dose as needed. She was instructed to check her sugars at home and bring her recordings to her PMD. She had abnormal stress test and was taken for cardiac cath by Dr. Macias. Showed Normal coronaries and Normal EF. Patient was discharged with insulin, BB, ARB, ASA, Statin. Discharge Exam - Head Exam Head Exam: ATRAUMATIC, NORMAL INSPECTION, NORMOCEPHALIC - Eye Exam Eye Exam: EOMI, Normal appearance, PERRL Pupil Exam: NORMAL ACCOMODATION, PERRL - Respiratory Exam Respiratory Exam: Clear to PA & Lateral, NORMAL BREATHING PATTERN, UNREMARKABLE - Cardiovascular Exam Cardiovascular Exam: REGULAR RHYTHM - GI/Abdominal Exam GI & Abdominal Exam: Normal Bowel Sounds, Soft, Unremarkable. absent: Distended , Tenderness - Neurological Exam Neurological exam: Alert, CN II-XII Intact, Normal Gait, Oriented x3, Reflexes Normal - Psychiatric Exam Psychiatric exam: Normal Affect, Normal Mood - Skin Skin Exam: Dry, Intact, Normal Color, Warm Discharge Plan - Discharge Medications Prescriptions: Aspirin [Aspirin Chewable] 81 mg PO DAILY #30 chew Atorvastatin Calcium 20 mg PO HS 30 Days tablet Blood Sugar Diagnostic, Drum [Accu-Chek Compact] 1 each ACHS 30 Days strip Carvedilol [Coreg] 3.125 mg PO BID #60 tab Gabapentin [Neurontin] 300 mg PO BID #60 cap Insulin Aspart, Recombinant [Novolog] 14 unit SC AC 30 Days unit Insulin Glargine, Recombina [Lantus] 30 unit SC HS 30 Days unit Lancets [Glucocom Lancets] 1 each ACHS 30 Days each Losartan/Hydrochlorothiazide [Losartan-Hctz 100-12.5 mg Tab] 1 each PO DAILY # 30 tablet SITagliptin [Januvia] 100 mg PO DAILY #30 tab - Follow Up Plan Condition: STABLE Disposition: HOME/ ROUTINE Instructions: Type 2 Diabetes, Cardiac Catheterization (DC), Diabetes Diet , Chest Pain (DC), Aspirin, Blood Glucose Test, Diabetes and Diet Additional Instructions: Please make appointment for your annual mammogram. Please follow up with your primary care doctor for management of your insulin so he can adjust it for you if need be. Please call the office to make an appointment. You should follow up in one week. Please check you sugar before meals and before bed. Please take the following medications: 1. Aspirin 81mg by mouth once daily 2. Atorvastatin 20mg by mouth once daily 3. Coreg 3.125mg by mouth twice daily 4. Neurontin 300mg by mouth two times per day 5. Insulin aspart 14units before meals 6. Insulin Glargine 30 units at bedtime 7. Losartan/HCTZ 1 tablet by mouth daily 8. Sitagliptin 100mg by mouth daily Referrals: [facility] [Outside]
[2017-10-30 07:39] LABS: ALB/GLOB RATIO 0.9 (1.0-2.1); ALBUMIN 3.1 g/dL (3.5-5.0); ALT/SGPT 38 U/L (9-52); AST/SGOT 46 U/L (14-36); BLOOD UREA NITROGEN 21 mg/dL (7-17); CALCIUM 9.1 mg/dl (8.6-10.4); GFR AFRICAN-AMERICAN > 60; GFR NON-AFRICAN AMERICAN > 60
[2017-10-30 07:40] VITALS: BP 141/85; TEMP 98; O2SAT 98
[2017-10-30 08:09] VITALS: PULSE 65
[2017-10-30] MEDS: (Novolog) Insulin Aspart, Recombinant 100 u/ml 10 ml vial SC SCH ×4 (08:33→12:33)
--- NOTE | 2017-10-31 01:32 | PN ---
DATE: 10/30/2017 LOCATION: Room 650. This is a 47-year-old female with recent uncontrolled type 2 insulin requiring diabetes, now being followed closely for metabolic management. Her glycemic levels are fluctuating but much improved at this time and the latest glucose levels have ranged from 213 to 235 mg/dL. Her latest chemistry showed a BUN of 21, sodium 138, potassium 4.3, chloride 104, CO2 of 26, glucose 266, and creatinine 0.8. She is scheduled for discharge today. I would recommend the same basal and bolus insulin drug combination of NovoLog given as 14 units subcu t.i.d. before meals as given. We will also recommend the same basal insulin given as Lantus at 34 units subcu at bedtime daily as given. We will continue the Januvia, given as 100 mg once daily as ordered. She will follow with Dr. Rajesh Jason, her primary physician, for outpatient diabetic and medical management and followup. Any Reyna MD
== END 2017-10-30 12:51 | disposition home or self-care (01) | DRG 125 ==
LOC: C.ER 17:13 → C.9E 21:59 → C.6T 22:49 → OBSVTOIN 10-27 10:04
PROVIDERS: ADMIT Hospitalist; ATTEND Hospitalist
PROC: 4A023N7 Measurement of Cardiac Sampling and Pressure, Left Heart, Percutaneous Approach (ICD-10-PCS; principal; 2017-10-29)
PROC: B2151ZZ Fluoroscopy of Left Heart using Low Osmolar Contrast (ICD-10-PCS; 2017-10-29)
PROC: B2111ZZ Fluoroscopy of Multiple Coronary Arteries using Low Osmolar Contrast (ICD-10-PCS; 2017-10-29)
DX: R07.89 Other chest pain (principal); I10 Essential (primary) hypertension; E11.42 Type 2 diabetes mellitus with diabetic polyneuropathy; E11.51 Type 2 diabetes mellitus with diabetic peripheral angiopathy without gangrene; D72.829 Elevated white blood cell count, unspecified; E11.65 Type 2 diabetes mellitus with hyperglycemia; E11.319 Type 2 diabetes mellitus with unspecified diabetic retinopathy without macular edema; E78.5 Hyperlipidemia, unspecified; F32.9 Major depressive disorder, single episode, unspecified; F41.1 Generalized anxiety disorder; Z79.4 Long term (current) use of insulin; Z79.82 Long term (current) use of aspirin; Z79.899 Other long term (current) drug therapy; Z85.3 Personal history of malignant neoplasm of breast; Z90.710 Acquired absence of both cervix and uterus